=== PATIENT | female | born 1940 | race Two or more races ===

== ENCOUNTER → 2016-08-30 | Outpatient (CLI) | payer OTHER ==
[2016-08-30 09:18] LABS: Basophils # (auto) 0 uL; Basophils % (auto) 0.4 % (0.0-2.0); CONDITION AutoValidated; Eosinophils # (auto) 0.1 uL; Eosinophils % (auto) 1.4 % (0.0-7.0); Hematocrit 38.1 % (36.0-46.0); Lymphocytes # (auto) 1.9 uL; Lymphocytes % (auto) 40.3 % (10.0-50.0); Mean Corpuscular Hemoglobin 31.6 pg (28.0-32.0); Mean Corpuscular Hgb Conc. 34.2 g/dL (32.0-36.0); Mean Corpuscular Volume 92.6 fL (80.0-100.0); Mean Platelet Volume 8.2 fL (7.4-10.4); Monocytes # (auto) 0.4 uL; Monocytes % (auto) 7.4 % (0.0-12.0); Neutrophils # (auto) 2.4 uL; Neutrophils % (auto) 50.5 % (37.0-80.0); Platelet Count (auto) 282 10^3/uL (140-450); Red Cell Distribution Width 14.6 % (11.6-16.0); White Blood Cell 4.8 10^3/uL (4.4-10.8)
[2016-08-30 09:42] LABS: Albumin 3.3 g/dL (3.4-5.0); BUN/Creatinine Ratio 26.3; Bilirubin, Total 0.5 mg/dL (0.2-1.0); Calcium 8.7 mg/dL (8.5-10.1); Potassium 3.8 mmol/L (3.5-5.1)
[2016-08-30 10:06] LABS: Urine Bilirubin Negative (Negative); Urine Blood Negative /uL (Negative); Urine Color Yellow (Yellow); Urine Glucose Normal (Normal); Urine Ketone Negative (Negative); Urine Nitrite Negative (Negative); Urine RBC 4 /hpf (0 - 4); Urine Squamous Epithelial Cell FEW /hpf (<5); Urine Urobilinogen Normal (Negative)
== END | disposition home or self-care (01) ==
LOC: LAB 08:41
PROVIDERS: ATTEND Internal Medicine
DX: M85.80 Other specified disorders of bone density and structure, unspecified site (principal)
CPT/HCPCS: 36415; 80053; 80061; 81001; 82306; 82607; 84439; 84443; 85025; 85652; 86787

== ENCOUNTER → 2016-10-15 | Outpatient (CLI) | payer OTHER | END | disposition home or self-care (01) | LOC: LAB 10:00 | PROVIDERS: ATTEND Physician Assistant | DX: D22.4 Melanocytic nevi of scalp and neck (principal); C44.712 Basal cell carcinoma of skin of right lower limb, including hip ==

== ENCOUNTER → 2017-02-18 | Outpatient (CLI) | payer OTHER | END | disposition home or self-care (01) | LOC: LAB 12:16 | PROVIDERS: ATTEND Physician Assistant | DX: D18.01 Hemangioma of skin and subcutaneous tissue (principal); L82.1 Other seborrheic keratosis ==

== ENCOUNTER → 2018-09-08 | Outpatient (CLI) | payer OTHER ==
[2018-09-08 11:28] LABS: Urine Bacteria FEW /hpf (None Seen); Urine Blood Negative /uL (Negative); Urine Hyaline Cast FEW /lpf (0 - 2); Urine Specific Gravity 1.024 (1.001-1.035); Urine WBC 3 /hpf (0 - 5)
[2018-09-08 11:53] LABS: Basophils # (auto) 0 uL; Basophils % (auto) 0.4 % (0.0-2.0); Eosinophils # (auto) 0.1 uL; Eosinophils % (auto) 1.6 % (0.0-7.0); Hematocrit 41.3 % (36.0-46.0); Hemoglobin 13.8 g/dL (12.2-16.2); Lymphocytes # (auto) 1.6 uL; Lymphocytes % (auto) 32.3 % (10.0-50.0); Mean Corpuscular Hemoglobin 31.9 pg (28.0-32.0); Mean Corpuscular Hgb Conc. 33.4 g/dL (32.0-36.0); Mean Corpuscular Volume 95.3 fL (80.0-100.0); Monocytes # (auto) 0.3 uL; Monocytes % (auto) 6.4 % (0.0-12.0); Neutrophils % (auto) 59.3 % (37.0-80.0); Platelet Count (auto) 261 10^3/uL (140-450); Red Blood Cells 4.33 10^6/uL (4.0-5.20); Red Cell Distribution Width 14.5 % (11.8-14.3)
[2018-09-08 13:05] LABS: Potassium 4.3 mmol/L (3.5-5.1)
[2018-09-08 13:16] LABS: Albumin 3.6 g/dL (3.4-5.0); BUN/Creatinine Ratio 26.1; Bilirubin, Total 0.4 mg/dL (0.2-1.0); Calcium 9.6 mg/dL (8.5-10.1); Total Protein 7.6 g/dL (6.4-8.2)
== END | disposition home or self-care (01) ==
LOC: LAB 10:41
PROVIDERS: ATTEND Internal Medicine
DX: Z00.00 Encounter for general adult medical examination without abnormal findings (principal); M85.80 Other specified disorders of bone density and structure, unspecified site
CPT/HCPCS: 36415; 80053; 80061; 81001; 82306; 84439; 84443; 85025; 85652

== ENCOUNTER → 2018-11-13 | Outpatient (CLI) | payer OTHER ==
[2018-11-13 09:59] LABS: Basophils # (auto) 0 uL; Basophils % (auto) 0.3 % (0.0-2.0); Eosinophils # (auto) 0.1 uL; Eosinophils % (auto) 1.5 % (0.0-7.0); Hematocrit 40.7 % (36.0-46.0); Hemoglobin 13.8 g/dL (12.2-16.2); Lymphocytes # (auto) 1.5 uL; Lymphocytes % (auto) 33.8 % (10.0-50.0); Mean Corpuscular Hemoglobin 31.6 pg (28.0-32.0); Mean Corpuscular Hgb Conc. 33.8 g/dL (32.0-36.0); Mean Corpuscular Volume 93.5 fL (80.0-100.0); Monocytes # (auto) 0.4 uL; Neutrophils # (auto) 2.6 uL; Neutrophils % (auto) 56.4 % (37.0-80.0); Platelet Count (auto) 244 10^3/uL (140-450); Red Blood Cells 4.36 10^6/uL (4.0-5.20); Red Cell Distribution Width 14.1 % (11.8-14.3); White Blood Cell 4.5 10^3/uL (4.4-10.8)
[2018-11-13 10:14] LABS: Albumin 3.4 g/dL (3.4-5.0); Calcium 8.8 mg/dL (8.5-10.1); Potassium 3.9 mmol/L (3.5-5.1)
[2018-11-13 10:18] LABS: BUN/Creatinine Ratio 23.9; Bilirubin, Total 0.6 mg/dL (0.2-1.0); Total Protein 7.4 g/dL (6.4-8.2)
== END | disposition home or self-care (01) ==
LOC: LAB 09:39
PROVIDERS: ATTEND Internal Medicine
DX: J18.1 Lobar pneumonia, unspecified organism (principal)
CPT/HCPCS: 36415; 80053; 85025; 85652

== ENCOUNTER → 2019-09-03 | Outpatient (CLI) | payer OTHER ==
[2019-09-03 10:38] LABS: Urine Bacteria NONE SEEN /hpf (None Seen); Urine Blood TRACE /uL (Negative); Urine Mucus FEW (None Seen); Urine Specific Gravity 1.029 (1.001-1.035); Urine WBC 7 /hpf (0 - 5)
[2019-09-03 11:08] LABS: Basophils # (auto) 0 10 ^3/uL (0-0.2); Basophils % (auto) 0.5 % (0.0-2.0); Eosinophils # (auto) 0.1 10 ^3/uL (0-0.8); Hematocrit 41.8 % (36.0-46.0); Hemoglobin 13.9 g/dL (12.2-16.2); Lymphocytes # (auto) 1.5 10 ^3/uL (0.4-5.4); Lymphocytes % (auto) 29.1 % (10.0-50.0); Mean Corpuscular Hemoglobin 30.9 pg (28.0-32.0); Mean Corpuscular Hgb Conc. 33.2 g/dL (32.0-36.0); Monocytes # (auto) 0.3 10 ^3/uL (0-1.3); Monocytes % (auto) 5.7 % (0.0-12.0); Neutrophils # (auto) 3.4 10 ^3/uL (1.6-8.6); Neutrophils % (auto) 63.7 % (37.0-80.0); Platelet Count (auto) 270 10^3/uL (140-450); Red Cell Distribution Width 14.4 % (11.8-14.3); White Blood Cell 5.3 10^3/uL (4.4-10.8)
[2019-09-03 11:47] LABS: Free T4 (Free Thyroxine) 1.05 ng/dL (0.89-1.76)
[2019-09-03 12:04] LABS: Albumin 3.4 g/dL (3.4-5.0); Calcium 8.5 mg/dL (8.5-10.1); Potassium 4.2 mmol/L (3.5-5.1)
[2019-09-03 12:06] LABS: BUN/Creatinine Ratio 33.3
[2019-09-03 12:08] LABS: Bilirubin, Total 0.4 mg/dL (0.2-1.0); Total Protein 7.5 g/dL (6.4-8.2)
[2019-09-16 12:31] LABS: RPR Non Reactive (Non Reactive)
== END | disposition home or self-care (01) ==
LOC: LAB 10:01
PROVIDERS: ATTEND Internal Medicine
DX: I67.2 Cerebral atherosclerosis (principal); R41.89 Other symptoms and signs involving cognitive functions and awareness
CPT/HCPCS: 36415; 80053; 80061; 81001; 82607; 84439; 84443; 85025; 85652; 86592

== ENCOUNTER → 2019-11-23 | Outpatient (CLI) | payer OTHER ==
[2019-11-23 10:33] LABS: Basophils # (auto) 0 10 ^3/uL (0-0.2); Basophils % (auto) 0.6 % (0.0-2.0); Eosinophils # (auto) 0.1 10 ^3/uL (0-0.8); Eosinophils % (auto) 1.3 % (0.0-7.0); Hematocrit 40.2 % (36.0-46.0); Hemoglobin 13.6 g/dL (12.2-16.2); Lymphocytes # (auto) 1.8 10 ^3/uL (0.4-5.4); Lymphocytes % (auto) 32.8 % (10.0-50.0); Mean Corpuscular Hemoglobin 31.9 pg (28.0-32.0); Mean Corpuscular Hgb Conc. 33.7 g/dL (32.0-36.0); Mean Corpuscular Volume 94.5 fL (80.0-100.0); Monocytes # (auto) 0.4 10 ^3/uL (0-1.3); Neutrophils # (auto) 3.2 10 ^3/uL (1.6-8.6); Neutrophils % (auto) 58.3 % (37.0-80.0); Platelet Count (auto) 271 10^3/uL (140-450); Red Blood Cells 4.25 10^6/uL (4.0-5.20); Red Cell Distribution Width 13.8 % (11.8-14.3); White Blood Cell 5.5 10^3/uL (4.4-10.8)
[2019-11-23 10:40] LABS: Urine Bacteria NONE SEEN /hpf (None Seen); Urine Blood Negative /uL (Negative); Urine Mucus FEW (None Seen); Urine Specific Gravity 1.025 (1.001-1.035); Urine WBC 2 /hpf (0 - 5)
[2019-11-23 10:51] LABS: Albumin 3.6 g/dL (3.4-5.0); Calcium 8.9 mg/dL (8.5-10.1); Potassium 3.8 mmol/L (3.5-5.1)
[2019-11-23 10:55] LABS: Bilirubin, Total 0.7 mg/dL (0.2-1.0); Total Protein 7.5 g/dL (6.4-8.2)
== END | disposition home or self-care (01) ==
LOC: LAB 10:06
PROVIDERS: ATTEND Internal Medicine
DX: Z01.812 Encounter for preprocedural laboratory examination (principal); E78.00 Pure hypercholesterolemia, unspecified
CPT/HCPCS: 36415; 80053; 81001; 85025

== ENCOUNTER → 2019-12-23 | Outpatient (CLI) | payer OTHER | END | disposition home or self-care (01) | LOC: LAB 10:34 | PROVIDERS: ATTEND Internal Medicine | DX: Z20.828 Contact with and (suspected) exposure to other viral communicable diseases (principal) | CPT/HCPCS: C9803; U0003 ==

== ENCOUNTER → 2020-01-28 | Outpatient (CLI) | payer OTHER ==
[2020-01-28 10:10] LABS: Basophils # (auto) 0 10 ^3/uL (0-0.2); Basophils % (auto) 0.5 % (0.0-2.0); Eosinophils # (auto) 0.1 10 ^3/uL (0-0.8); Eosinophils % (auto) 1.5 % (0.0-7.0); Hematocrit 42.2 % (36.0-46.0); Hemoglobin 14.3 g/dL (12.2-16.2); Lymphocytes # (auto) 1.7 10 ^3/uL (0.4-5.4); Mean Corpuscular Hemoglobin 31.7 pg (28.0-32.0); Mean Corpuscular Hgb Conc. 33.9 g/dL (32.0-36.0); Mean Corpuscular Volume 93.7 fL (80.0-100.0); Monocytes # (auto) 0.4 10 ^3/uL (0-1.3); Monocytes % (auto) 6.8 % (0.0-12.0); Neutrophils # (auto) 3.2 10 ^3/uL (1.6-8.6); Neutrophils % (auto) 59.2 % (37.0-80.0); Platelet Count (auto) 306 10^3/uL (140-450); Red Blood Cells 4.51 10^6/uL (4.0-5.20); Red Cell Distribution Width 14.2 % (11.8-14.3); Urine Blood Negative /uL (Negative); Urine Specific Gravity 1.011 (1.001-1.035); White Blood Cell 5.4 10^3/uL (4.4-10.8)
[2020-01-28 10:23] LABS: INR 1.06 (0.9-1.15); Partial Thromboplastin Time 25.3 sec (23.0-31.2)
[2020-01-28 10:48] LABS: Albumin 3.5 g/dL (3.4-5.0); Calcium 9.4 mg/dL (8.5-10.1); Potassium 4.4 mmol/L (3.5-5.1)
[2020-01-28 10:53] LABS: Bilirubin, Total 0.4 mg/dL (0.2-1.0); Total Protein 7.7 g/dL (6.4-8.2)
== END | disposition home or self-care (01) ==
LOC: LAB 09:46
PROVIDERS: ATTEND Specialist
DX: Z01.812 Encounter for preprocedural laboratory examination (principal); H25.12 Age-related nuclear cataract, left eye; D68.9 Coagulation defect, unspecified; Z79.01 Long term (current) use of anticoagulants
CPT/HCPCS: 36415; 80053; 81003; 85025; 85610; 85730

== ENCOUNTER → 2020-04-24 | Outpatient (CLI) | payer BC ==
[2020-04-24 10:38] LABS: Band Neutrophils % (manual) 0; Basophils % (manual) 0 (0.0-2.0); Blast Cells 0; Metamyelocytes % 0; Myelocytes % 0; Promyelocytes % 0; Reactive Lymphocytes 0
[2020-04-24 10:54] LABS: Basophils # (auto) 0 10 ^3/uL (0-0.2); Basophils % (auto) 0.8 % (0.0-2.0); Eosinophils # (auto) 0.1 10 ^3/uL (0-0.8); Eosinophils % (auto) 2.7 % (0.0-7.0); Hematocrit 40.6 % (36.0-46.0); Hemoglobin 13.7 g/dL (12.2-16.2); Lymphocytes # (auto) 1.5 10 ^3/uL (0.4-5.4); Lymphocytes % (auto) 29.1 % (10.0-50.0); Mean Corpuscular Hemoglobin 31.3 pg (28.0-32.0); Mean Corpuscular Hgb Conc. 33.7 g/dL (32.0-36.0); Monocytes # (auto) 0.4 10 ^3/uL (0-1.3); Monocytes % (auto) 7.3 % (0.0-12.0); Neutrophils % (auto) 60.1 % (37.0-80.0); Platelet Count (auto) 296 10^3/uL (140-450); Red Blood Cells 4.37 10^6/uL (4.0-5.20); Red Cell Distribution Width 13.8 % (11.8-14.3)
[2020-04-24 11:31] LABS: Cholesterol 217 mg/dL (< 200); HDL Cholesterol 65 mg/dL (40-59); LDL Cholesterol 129 mg/dL (< 100); Triglycerides 80 mg/dL (< 150)
[2020-04-24 11:35] LABS: Eosinophils % (manual) 3 (0-7); Lymphocytes % (manual) 34 (10.0-50.0); Monocytes % (manual) 6 (0-12)
== END | disposition home or self-care (01) ==
LOC: LAB 10:07
PROVIDERS: ATTEND Internal Medicine
DX: E78.00 Pure hypercholesterolemia, unspecified (principal); R05 Cough
CPT/HCPCS: 36415; 80061; 82785; 85025

== ENCOUNTER → 2020-12-19 | Outpatient (CLI) | payer BC ==
[2020-12-19 10:32] LABS: Basophils # (auto) 0 10 ^3/uL (0-0.2); Basophils % (auto) 0.7 % (0.0-2.0); Eosinophils # (auto) 0.1 10 ^3/uL (0-0.8); Eosinophils % (auto) 1.4 % (0.0-7.0); Hematocrit 39.2 % (36.0-46.0); Hemoglobin 13.2 g/dL (12.2-16.2); Lymphocytes # (auto) 1.6 10 ^3/uL (0.4-5.4); Lymphocytes % (auto) 33.7 % (10.0-50.0); Mean Corpuscular Hemoglobin 31.1 pg (28.0-32.0); Mean Corpuscular Hgb Conc. 33.7 g/dL (32.0-36.0); Mean Corpuscular Volume 92.5 fL (80.0-100.0); Monocytes # (auto) 0.3 10 ^3/uL (0-1.3); Monocytes % (auto) 6.6 % (0.0-12.0); Neutrophils # (auto) 2.8 10 ^3/uL (1.6-8.6); Neutrophils % (auto) 57.6 % (37.0-80.0); Red Blood Cells 4.23 10^6/uL (4.0-5.20); Red Cell Distribution Width 14.5 % (11.8-14.3); White Blood Cell 4.8 10^3/uL (4.4-10.8)
[2020-12-19 10:46] LABS: Urine Bacteria NONE SEEN /hpf (None Seen); Urine Blood Negative /uL (Negative); Urine Specific Gravity 1.021 (1.001-1.035); Urine WBC 21 /hpf (0 - 5)
[2020-12-19 10:56] LABS: Albumin 3.4 g/dL (3.4-5.0); Calcium 9.4 mg/dL (8.5-10.1); Potassium 3.9 mmol/L (3.5-5.1)
[2020-12-19 11:03] LABS: BUN/Creatinine Ratio 27.8; Bilirubin, Total 0.5 mg/dL (0.2-1.0); Total Protein 7.5 g/dL (6.4-8.2); Uric Acid 3.9 mg/dL (2.6-6.0)
== END | disposition home or self-care (01) ==
LOC: LAB 10:08
PROVIDERS: ATTEND Internal Medicine
DX: M85.80 Other specified disorders of bone density and structure, unspecified site (principal); M25.50 Pain in unspecified joint
CPT/HCPCS: 36415; 80053; 80061; 81001; 82306; 83970; 84439; 84443; 84550; 85025; 85652; 86200; 86431

== ENCOUNTER 2021-01-11 08:50 | Inpatient (IN) | payer BC, OTHER ==
[~2021-01-11] VITALS: Ht 157.5 cm; Wt 61.2 kg
[2021-01-11 09:27] LABS: Basophils # (auto) 0 10 ^3/uL (0-0.2); Eosinophils # (auto) 0 10 ^3/uL (0-0.8); Hemoglobin 13.5 g/dL (12.2-16.2); Monocytes # (auto) 0 10 ^3/uL (0-1.3)
[2021-01-11 09:28] LABS: Eosinophils % (auto) 1.6 % (0.0-7.0); Hematocrit 41.3 % (36.0-46.0); Lymphocytes # (auto) 0.3 10 ^3/uL (0.4-5.4); Lymphocytes % (auto) 30.7 % (10.0-50.0); Mean Corpuscular Hemoglobin 30.8 pg (28.0-32.0); Mean Corpuscular Hgb Conc. 32.8 g/dL (32.0-36.0); Mean Corpuscular Volume 93.8 fL (80.0-100.0); Monocytes % (auto) 3.6 % (0.0-12.0); Neutrophils # (auto) 0.6 10 ^3/uL (1.6-8.6); Neutrophils % (auto) 64.1 % (37.0-80.0); Nucleated Red Blood Cells % 0.5 %; Red Cell Distribution Width 14.7 % (11.8-14.3)
[2021-01-11] MEDS ORDERED: KETOROLAC TROMETH 30 MG/ML 1ML VIAL IV ONE (09:30)
[2021-01-11] MEDS ORDERED: ONDANSETRON HCL 4 MG/2 ML VIAL IV ONE ×2 (09:30→10:45)
[2021-01-11 09:42] LABS: Albumin 3.4 g/dL (3.4-5.0); Calcium 9.4 mg/dL (8.5-10.1); Magnesium 1.9 mg/dL (1.6-2.6); Potassium 3.2 mmol/L (3.5-5.1)
[2021-01-11 09:45] LABS: BUN/Creatinine Ratio 20.4; Bilirubin, Total 0.8 mg/dL (0.2-1.0); Total Protein 7.8 g/dL (6.4-8.2)
[2021-01-11] MEDS ORDERED: SODIUM CHLORIDE 0.9% 1,000 ML IV ONE ×2 (10:00→14:30)
[2021-01-11 10:15] LABS: White Blood Cell 0.9 10^3/uL (4.4-10.8)
[2021-01-11] MEDS ORDERED: MORPHINE SULFATE INJECTION 2 MG/ML SYRG IV ONE (10:45)
[2021-01-11 12:34] LABS: Urine Bacteria FEW /hpf (None Seen); Urine Blood 1+ /uL (Negative); Urine WBC 3 /hpf (0 - 5)
[2021-01-11] MEDS ORDERED: TAMSULOSIN HYDROCHLORIDE 0.4 MG CAP PO ONE (13:15)
[2021-01-11] MEDS ORDERED: cefTRIAXone 1GM/50ML D5W 50 ML IV ONE (13:15)
[2021-01-11] MEDS ORDERED: MORPHINE SULFATE INJECTION 2 MG/ML SYRG IV PRN ×2 (14:30→15:15)
[2021-01-11] MEDS ORDERED: SODIUM CHLORIDE 0.9% 1,850 ML IV ONE (14:30)
[2021-01-11] MEDS ORDERED: NITROGLYCERIN 0.4 MG SL TAB SL PRN (14:30)
[2021-01-11] MEDS ORDERED: FILGRASTIM (TBO) 300 MCG/0.5 ML SYRG SC ONE (15:15)
[2021-01-11] MEDS ORDERED: DEXTROSE (50%) 50ML SYRG IV PRN (15:15)
[2021-01-11] MEDS ORDERED: POTASSIUM EFFERVESENT TAB 25 MEQ PO ONE (15:15)
[2021-01-11 15:17] LABS: Lactic Acid w/Reflex 2.1 mmol/L (0.4-2.0)
[2021-01-11] MEDS: SODIUM CHLORIDE 0.9% 1,000 ML IV SCH (15:27)
[2021-01-11] MEDS ORDERED: ASPirin 81 mg TAB PO ONE (16:00)
[2021-01-11] MEDS: ACCU-CHEK COMFORT CURVE STRIP VI SCH ×2 (17:22→22:13)
[2021-01-11 18:11] LABS: Cholesterol 171 mg/dL (< 200); Triglycerides 62 mg/dL (< 150)
[2021-01-11 18:13] LABS: HDL Cholesterol 61 mg/dL (40-59); LDL Cholesterol 101 mg/dL (< 100)
[2021-01-11] MEDS: PHENYLEPHRINE IV 250 ML IV SCH (19:31)
[2021-01-11] MEDS: ATORVASTATIN 20 MG TAB PO SCH (22:12)
[2021-01-11] MEDS: ENOXAPARIN SOD 60 MG/0.6 ML SYRINGE SC SCH (22:13)
[2021-01-11] MEDS ORDERED: SOD CHL 0.9%/ KCL 40MEQ 1,000 ML IV SCH (22:30)
[2021-01-11] MEDS: NOREPINEPHRINE 8 MG/250ML KIT 250 ML IV SCH (23:21)
[2021-01-12] MEDS: PHENYLEPHRINE IV 250 ML IV SCH ×3 (00:45→05:08)
[2021-01-12] MEDS: SODIUM CHLORIDE 0.9% 1,000 ML IV SCH ×3 (01:36→21:24)
[2021-01-12] MEDS: ACETAMINOPHEN 500 MG TAB PO PRN (01:37)
[2021-01-12] MEDS ORDERED: VANCOMYCIN PER PHARMACY 0 MG IV SCH (01:45)
[2021-01-12] MEDS ORDERED: VANCOMYCIN 1GM/250ML 250 ML IV ONE (02:00)
[2021-01-12] MEDS: traMADol HCL 50 MG TAB PO PRN ×2 (06:56→18:05)
[2021-01-12] MEDS: ACCU-CHEK COMFORT CURVE STRIP VI SCH ×4 (07:19→21:29)
[2021-01-12 07:22] LABS: Hematocrit 36.4 % (36.0-46.0); Hemoglobin 12.3 g/dL (12.2-16.2); Mean Corpuscular Hemoglobin 31.7 pg (28.0-32.0); Mean Corpuscular Hgb Conc. 33.7 g/dL (32.0-36.0); Mean Corpuscular Volume 94.2 fL (80.0-100.0); Red Blood Cells 3.87 10^6/uL (4.0-5.20); Red Cell Distribution Width 15.1 % (11.8-14.3); White Blood Cell 20.7 10^3/uL (4.4-10.8)
[2021-01-12 07:24] LABS: Basophils % (manual) 0 (0.0-2.0); Blast Cells 0; Eosinophils % (manual) 0 (0-7); Metamyelocytes % 0; Myelocytes % 0; Promyelocytes % 0; Reactive Lymphocytes 0
[2021-01-12 07:39] LABS: Albumin 2.5 g/dL (3.4-5.0); Calcium 7.5 mg/dL (8.5-10.1)
[2021-01-12 07:46] LABS: BUN/Creatinine Ratio 16.5; Bilirubin, Total 0.3 mg/dL (0.2-1.0); Total Protein 6.3 g/dL (6.4-8.2)
[2021-01-12 08:23] LABS: Band Neutrophils % (manual) 31; Lymphocytes % (manual) 9 (10.0-50.0); Monocytes % (manual) 3 (0-12)
[2021-01-12] MEDS ORDERED: ENOXAPARIN SOD 40 MG/0.4 ML SYRINGE SC SCH (10:00)
[2021-01-12] MEDS ORDERED: FILGRASTIM (TBO) 300 MCG/0.5 ML SYRG SC SCH (10:00)
[2021-01-12] MEDS: ASPirin 81 mg TAB PO SCH (10:19)
[2021-01-12] MEDS: cefTRIAXone 1GM/50ML D5W 50 ML IV SCH (10:19)
[2021-01-12] MEDS: ENOXAPARIN SOD 60 MG/0.6 ML SYRINGE SC SCH ×2 (10:23→21:24)
[2021-01-12] MEDS: MEROPENEM 1GM IVPB 100 ML IV SCH (14:06)
[2021-01-12] MEDS: ONDANSETRON HCL 4 MG/2 ML VIAL IV PRN (14:18)
[2021-01-12] MEDS: ATORVASTATIN 20 MG TAB PO SCH (21:24)
[2021-01-12] MEDS: NOREPINEPHRINE 8 MG/250ML KIT 250 ML IV SCH (23:15)
[2021-01-12 23:55] VITALS: BP 131/76
[2021-01-13] MEDS: ONDANSETRON HCL 4 MG/2 ML VIAL IV PRN ×2 (00:16→04:56)
[2021-01-13] MEDS: MEROPENEM 1GM IVPB 100 ML IV SCH ×2 (02:10→14:13)
[2021-01-13] MEDS: PHENYLEPHRINE IV 250 ML IV SCH (04:20)
[2021-01-13 05:00] VITALS: BP 120/78
[2021-01-13] MEDS ORDERED: VANCOMYCIN 1GM/250ML 250 ML IV SCH (05:00)
[2021-01-13] MEDS: ACCU-CHEK COMFORT CURVE STRIP VI SCH (06:03)
[2021-01-13 06:59] LABS: Hematocrit 33.6 % (36.0-46.0); Hemoglobin 11.5 g/dL (12.2-16.2); Mean Corpuscular Hgb Conc. 34.2 g/dL (32.0-36.0); Mean Corpuscular Volume 93.6 fL (80.0-100.0); Red Blood Cells 3.59 10^6/uL (4.0-5.20); Red Cell Distribution Width 15.1 % (11.8-14.3); White Blood Cell 19.5 10^3/uL (4.4-10.8)
[2021-01-13 07:12] LABS: Basophils % (manual) 0 (0.0-2.0); Blast Cells 0; Eosinophils % (manual) 0 (0-7); Myelocytes % 0; Promyelocytes % 0; Reactive Lymphocytes 0
[2021-01-13 07:17] LABS: Potassium 3.5 mmol/L (3.5-5.1)
[2021-01-13 07:30] LABS: Albumin 2.2 g/dL (3.4-5.0); BUN/Creatinine Ratio 22.6; Bilirubin, Total 0.4 mg/dL (0.2-1.0); Calcium 7.7 mg/dL (8.5-10.1); Magnesium 2.1 mg/dL (1.6-2.6); Total Protein 6.1 g/dL (6.4-8.2)
[2021-01-13] MEDS: cefTRIAXone 1GM/50ML D5W 50 ML IV SCH (09:05)
[2021-01-13] MEDS: ASPirin 81 mg TAB PO SCH (09:06)
[2021-01-13] MEDS: ENOXAPARIN SOD 60 MG/0.6 ML SYRINGE SC SCH (09:06)
[2021-01-13] MEDS: ACETAMINOPHEN 500 MG TAB PO PRN (09:07)
[2021-01-13 09:08] VITALS: BP 138/68
[2021-01-13 09:45] LABS: Band Neutrophils % (manual) 14; Lymphocytes % (manual) 5 (10.0-50.0); Metamyelocytes % 2; Monocytes % (manual) 2 (0-12)
[2021-01-13 12:30] VITALS: BP 122/69
[2021-01-13] MEDS ORDERED: ONDANSETRON HCL 4 MG/2 ML VIAL IV PRN (13:00)
[2021-01-13] MEDS: SODIUM CHLORIDE 0.9% 1,000 ML IV SCH (13:19)
[2021-01-13] MEDS ORDERED: METOPROLOL TARTRATE 25 MG TAB PO ONE (18:30)
[2021-01-13] MEDS ORDERED: ALPRAZolam 0.25 MG TAB PO ONE (18:30)
[2021-01-13] MEDS: traMADol HCL 50 MG TAB PO PRN (20:41)
[2021-01-13] MEDS: ATORVASTATIN 20 MG TAB PO SCH (21:22)
[2021-01-13 22:00] VITALS: BP 131/73
[2021-01-13] MEDS ORDERED: ENOXAPARIN SOD 60 MG/0.6 ML SYRINGE SC SCH (22:00)
[2021-01-13 22:22] LABS: Hematocrit 33.5 % (36.0-46.0); Hemoglobin 11.2 g/dL (12.2-16.2); Mean Corpuscular Hemoglobin 31.1 pg (28.0-32.0); Mean Corpuscular Hgb Conc. 33.5 g/dL (32.0-36.0); Mean Corpuscular Volume 92.8 fL (80.0-100.0); Red Blood Cells 3.61 10^6/uL (4.0-5.20); Red Cell Distribution Width 14.7 % (11.8-14.3); White Blood Cell 24.4 10^3/uL (4.4-10.8)
[2021-01-13 22:25] LABS: Basophils % (manual) 0 (0.0-2.0); Blast Cells 0; Eosinophils % (manual) 0 (0-7); Metamyelocytes % 0; Myelocytes % 0; Promyelocytes % 0; Reactive Lymphocytes 0
[2021-01-13 22:36] LABS: Albumin 2.1 g/dL (3.4-5.0); BUN/Creatinine Ratio 30.8; Potassium 3.4 mmol/L (3.5-5.1)
[2021-01-13 22:39] LABS: Bilirubin, Total 0.5 mg/dL (0.2-1.0); Total Protein 5.8 g/dL (6.4-8.2)
[2021-01-13] MEDS ORDERED: POTASSIUM CHL 20MEQ/100ML 100 ML IV ONE (23:15)
[2021-01-13] MEDS ORDERED: VANCOMYCIN PER PHARMACY 0 MG IV SCH (23:15)
[2021-01-13] MEDS ORDERED: VANCOMYCIN 1GM/250ML 250 ML IV ONE (23:30)
[2021-01-13 23:32] LABS: Band Neutrophils % (manual) 9; Lymphocytes % (manual) 4 (10.0-50.0); Monocytes % (manual) 4 (0-12)
[2021-01-14] MEDS: MEROPENEM 1GM IVPB 100 ML IV SCH ×2 (03:26→14:00)
[2021-01-14 04:55] VITALS: BP 127/75
[2021-01-14] MEDS: SODIUM CHLORIDE 0.9% 1,000 ML IV SCH ×2 (06:17→23:37)
[2021-01-14] MEDS: METOPROLOL TARTRATE 25 MG TAB PO SCH ×2 (08:00→21:25)
[2021-01-14 08:36] LABS: Hematocrit 34.8 % (36.0-46.0); Hemoglobin 11.6 g/dL (12.2-16.2); Mean Corpuscular Hemoglobin 31.1 pg (28.0-32.0); Mean Corpuscular Hgb Conc. 33.3 g/dL (32.0-36.0); Mean Corpuscular Volume 93.5 fL (80.0-100.0); Red Blood Cells 3.72 10^6/uL (4.0-5.20); Red Cell Distribution Width 15.1 % (11.8-14.3); White Blood Cell 20.3 10^3/uL (4.4-10.8)
[2021-01-14 08:44] LABS: INR 1.13 (0.9-1.15)
[2021-01-14 08:45] LABS: BUN/Creatinine Ratio 29.3; Calcium 7.9 mg/dL (8.5-10.1); Potassium 3.9 mmol/L (3.5-5.1)
[2021-01-14 08:47] LABS: Bilirubin, Total 0.5 mg/dL (0.2-1.0)
[2021-01-14 09:00] VITALS: BP 140/78
[2021-01-14] MEDS ORDERED: TAMSULOSIN HYDROCHLORIDE 0.4 MG CAP PO ONE (09:15)
[2021-01-14] MEDS: ASPirin 81 mg TAB PO SCH (09:38)
[2021-01-14] MEDS: ENOXAPARIN SOD 60 MG/0.6 ML SYRINGE SC SCH ×2 (10:00→21:25)
[2021-01-14] MEDS ORDERED: ENOXAPARIN SOD 40 MG/0.4 ML SYRINGE SC SCH (10:00)
[2021-01-14 13:00] VITALS: BP 135/72
[2021-01-14 14:10] LABS: Basophils % (manual) 0 (0.0-2.0); Blast Cells 0; Metamyelocytes % 0; Myelocytes % 0; Promyelocytes % 0; Reactive Lymphocytes 0
[2021-01-14 14:11] LABS: Eosinophils % (manual) 1 (0-7); Lymphocytes % (manual) 7 (10.0-50.0); Monocytes % (manual) 2 (0-12)
[2021-01-14 14:12] LABS: Band Neutrophils % (manual) 8
[2021-01-14 17:23] VITALS: BP 142/71
[2021-01-14] MEDS: TAMSULOSIN HYDROCHLORIDE 0.4 MG CAP PO SCH (17:47)
[2021-01-14] MEDS: ACETAMINOPHEN 500 MG TAB PO PRN (17:48)
[2021-01-14] MEDS: ATORVASTATIN 20 MG TAB PO SCH (21:25)
[2021-01-14 22:20] VITALS: BP 121/73
[2021-01-15] VITALS (15 sets, daily range): BP systolic 101–128; BP diastolic 61–81
[2021-01-15] MEDS: MEROPENEM 1GM IVPB 100 ML IV SCH (02:10)
[2021-01-15] MEDS ORDERED: VANCOMYCIN 1GM/250ML 250 ML IV SCH (05:00)
[2021-01-15 05:55] LABS: Hematocrit 32.8 % (36.0-46.0); Mean Corpuscular Hgb Conc. 33.5 g/dL (32.0-36.0); Mean Corpuscular Volume 92.5 fL (80.0-100.0); Red Blood Cells 3.55 10^6/uL (4.0-5.20); Red Cell Distribution Width 14.7 % (11.8-14.3); White Blood Cell 12.2 10^3/uL (4.4-10.8)
[2021-01-15 06:18] LABS: Basophils % (manual) 0 (0.0-2.0); Blast Cells 0; Eosinophils % (manual) 0 (0-7); Metamyelocytes % 0; Myelocytes % 0; Promyelocytes % 0; Reactive Lymphocytes 0
[2021-01-15 06:18] LABS: BUN/Creatinine Ratio 32.6; Calcium 7.9 mg/dL (8.5-10.1); Potassium 3.1 mmol/L (3.5-5.1)
[2021-01-15] MEDS: METOPROLOL TARTRATE 25 MG TAB PO SCH ×2 (08:15→22:23)
[2021-01-15 08:38] LABS: Band Neutrophils % (manual) 5; Lymphocytes % (manual) 10 (10.0-50.0); Monocytes % (manual) 7 (0-12)
[2021-01-15] MEDS ORDERED: MAGNESIUM OXIDE 400 MG TAB PO ONE (09:00)
[2021-01-15] MEDS ORDERED: POTASSIUM EFFERVESENT TAB 25 MEQ PO ONE (09:00)
[2021-01-15] MEDS ORDERED: FUROSEMIDE 20 MG/2 ML VIAL IV ONE (09:00)
[2021-01-15] MEDS ORDERED: IOHEXOL 350 MG/ML 100ML IJ ONE (09:16)
[2021-01-15] MEDS: ENOXAPARIN SOD 60 MG/0.6 ML SYRINGE SC SCH ×2 (10:00→22:23)
[2021-01-15] MEDS: ASPirin 81 mg TAB PO SCH (11:49)
[2021-01-15] MEDS ORDERED: POTASSIUM CHL 20 Meq TABLET PO ONE (14:00)
[2021-01-15] MEDS: ERTAPENEM SOD INJ 1 GM in SODIUM CHL 0.9% 50 ML IV SCH (14:00)
[2021-01-15] MEDS ORDERED: ALBUTEROL SULF 2.5 MG/0.5ML(0.5%) NEB SOLN NEB PRN (15:15)
[2021-01-15] MEDS ORDERED: IPRATROPIUM BROM 0.5 MG/2.5ML INH SOL NEB PRN (15:15)
[2021-01-15] MEDS: TAMSULOSIN HYDROCHLORIDE 0.4 MG CAP PO SCH (17:58)
[2021-01-15] MEDS: ATORVASTATIN 20 MG TAB PO SCH (22:22)
[2021-01-16] VITALS (7 sets, daily range): BP systolic 116–130; BP diastolic 59–90
[2021-01-16 06:37] LABS: Calcium 7.9 mg/dL (8.5-10.1); Magnesium 1.9 mg/dL (1.6-2.6); Potassium 3.9 mmol/L (3.5-5.1)
[2021-01-16] MEDS: ASPirin 81 mg TAB PO SCH (09:01)
[2021-01-16] MEDS: METOPROLOL TARTRATE 25 MG TAB PO SCH ×2 (09:02→21:41)
[2021-01-16] MEDS: ENOXAPARIN SOD 60 MG/0.6 ML SYRINGE SC SCH (09:03)
[2021-01-16] MEDS: ACETAMINOPHEN 500 MG TAB PO PRN (09:08)
[2021-01-16] MEDS: ERTAPENEM SOD INJ 1 GM in SODIUM CHL 0.9% 50 ML IV SCH (10:16)
[2021-01-16] MEDS: TAMSULOSIN HYDROCHLORIDE 0.4 MG CAP PO SCH (17:52)
[2021-01-16] MEDS: ATORVASTATIN 20 MG TAB PO SCH (21:40)
[2021-01-17 04:41] VITALS: BP 112/70
[2021-01-17] MEDS: ACETAMINOPHEN 500 MG TAB PO PRN (06:22)
[2021-01-17 07:26] LABS: Potassium 3.6 mmol/L (3.5-5.1)
[2021-01-17 07:27] LABS: Hematocrit 35.1 % (36.0-46.0); Hemoglobin 12.4 g/dL (12.2-16.2); Mean Corpuscular Hemoglobin 32.1 pg (28.0-32.0); Mean Corpuscular Hgb Conc. 35.4 g/dL (32.0-36.0); Mean Corpuscular Volume 90.7 fL (80.0-100.0); Red Blood Cells 3.87 10^6/uL (4.0-5.20); Red Cell Distribution Width 14.9 % (11.8-14.3); White Blood Cell 9.1 10^3/uL (4.4-10.8)
[2021-01-17 07:33] LABS: Basophils % (manual) 0 (0.0-2.0); Blast Cells 0; Metamyelocytes % 0; Myelocytes % 0; Promyelocytes % 0; Reactive Lymphocytes 0
[2021-01-17] MEDS: METOPROLOL TARTRATE 25 MG TAB PO SCH (08:05)
[2021-01-17 09:00] VITALS: BP 126/67
[2021-01-17] MEDS: ASPirin 81 mg TAB PO SCH (09:50)
[2021-01-17] MEDS: ERTAPENEM SOD INJ 1 GM in SODIUM CHL 0.9% 50 ML IV SCH (09:51)
[2021-01-17] MEDS ORDERED: ENOXAPARIN SOD 40 MG/0.4 ML SYRINGE SC SCH (10:00)
[2021-01-17 11:44] LABS: Band Neutrophils % (manual) 1; Eosinophils % (manual) 3 (0-7); Lymphocytes % (manual) 30 (10.0-50.0); Monocytes % (manual) 11 (0-12)
[2021-01-17 13:12] VITALS: BP 119/57
[2021-01-17 14:13] VITALS: BP 119/57
== END 2021-01-17 16:02 | disposition home or self-care (01) | DRG 871 ==
LOC: ER 08:50 → TELE 14:28 → TELE-WESTW 01-12 23:46
PROVIDERS: ADMIT Internal Medicine; ATTEND Internal Medicine
PROC: 05HF33Z Insertion of Infusion Device into Left Cephalic Vein, Percutaneous Approach (ICD-10-PCS; 2021-01-12)
PROC: B54NZZA Ultrasonography of Left Upper Extremity Veins, Guidance (ICD-10-PCS; 2021-01-12)
PROC: 0W993ZZ Drainage of Right Pleural Cavity, Percutaneous Approach (ICD-10-PCS; principal; 2021-01-15)
DX: A41.50 Gram-negative sepsis, unspecified (principal); J96.00 Acute respiratory failure, unspecified whether with hypoxia or hypercapnia; I21.4 Non-ST elevation (NSTEMI) myocardial infarction; N13.6 Pyonephrosis; N17.9 Acute kidney failure, unspecified; I47.1 Supraventricular tachycardia; J90 Pleural effusion, not elsewhere classified; E87.6 Hypokalemia; R73.9 Hyperglycemia, unspecified; Z20.822 Contact with and (suspected) exposure to COVID-19; E55.9 Vitamin D deficiency, unspecified; I70.90 Unspecified atherosclerosis; I48.91 Unspecified atrial fibrillation; Z80.3 Family history of malignant neoplasm of breast; Z85.3 Personal history of malignant neoplasm of breast; Z87.442 Personal history of urinary calculi; Z87.891 Personal history of nicotine dependence; Z90.13 Acquired absence of bilateral breasts and nipples
CPT/HCPCS: 36415; 71045; 71250; 71275; 74176; 76604; 76700; 76775; 76942; 80048; 80053; 80061; 80202; 81001; 82306; 82550; 82962; 83036; 83605; 83735; 83880; 83986; 84443; 84484; 85007; 85025; 85027; 85610; 86850; 86900; 86901; 87040; 87070; 87077; 87086; 87088; 87186; 87205; 87426; 89051; 93005; 93306; 96361; 96365; 96375; G0378; J0696; J1335; J1447; J1885; J2185; J2405; J3480

== ENCOUNTER → 2021-04-24 | Outpatient (CLI) | payer BC ==
[2021-04-24 10:37] LABS: Basophils # (auto) 0 10 ^3/uL (0-0.2); Basophils % (auto) 0.6 % (0.0-2.0); Eosinophils # (auto) 0.1 10 ^3/uL (0-0.8); Eosinophils % (auto) 1.8 % (0.0-7.0); Hematocrit 40.2 % (36.0-46.0); Hemoglobin 13.7 g/dL (12.2-16.2); Lymphocytes # (auto) 1.5 10 ^3/uL (0.4-5.4); Lymphocytes % (auto) 32.9 % (10.0-50.0); Mean Corpuscular Hemoglobin 31.2 pg (28.0-32.0); Mean Corpuscular Hgb Conc. 34.1 g/dL (32.0-36.0); Mean Corpuscular Volume 91.5 fL (80.0-100.0); Monocytes # (auto) 0.4 10 ^3/uL (0-1.3); Monocytes % (auto) 9.7 % (0.0-12.0); Neutrophils # (auto) 2.5 10 ^3/uL (1.6-8.6); Red Blood Cells 4.39 10^6/uL (4.0-5.20); Red Cell Distribution Width 13.9 % (11.8-14.3); White Blood Cell 4.6 10^3/uL (4.4-10.8)
[2021-04-24 11:19] LABS: Free T4 (Free Thyroxine) 1.28 ng/dL (0.89-1.76)
[2021-04-24 12:14] LABS: Potassium 4.1 mmol/L (3.5-5.1)
[2021-04-24 12:23] LABS: Albumin 3.4 g/dL (3.4-5.0); BUN/Creatinine Ratio 26.3; Bilirubin, Total 0.5 mg/dL (0.2-1.0); Calcium 9.3 mg/dL (8.5-10.1); Total Protein 7.8 g/dL (6.4-8.2)
[2021-04-25 08:06] LABS: Immunoglobulin G, Serum 1527 mg/dL (586-1602)
== END | disposition home or self-care (01) ==
LOC: LAB 09:36
PROVIDERS: ATTEND Internal Medicine
DX: M79.2 Neuralgia and neuritis, unspecified (principal); N13.2 Hydronephrosis with renal and ureteral calculous obstruction
CPT/HCPCS: 36415; 80053; 82306; 82607; 82784; 83036; 84439; 84443; 85025; 86200; 86334; 86431

== ENCOUNTER → 2022-01-03 | Outpatient (CLI) | payer BC ==
[2022-01-03 13:47] LABS: Basophils # (auto) 0 10 ^3/uL (0-0.2); Basophils % (auto) 0.4 % (0.0-2.0); Eosinophils # (auto) 0.1 10 ^3/uL (0-0.8); Eosinophils % (auto) 1.4 % (0.0-7.0); Hematocrit 40.6 % (36.0-46.0); Hemoglobin 13.1 g/dL (12.2-16.2); Lymphocytes # (auto) 1.8 10 ^3/uL (0.4-5.4); Lymphocytes % (auto) 29.1 % (10.0-50.0); Mean Corpuscular Hemoglobin 30.6 pg (28.0-32.0); Mean Corpuscular Hgb Conc. 32.4 g/dL (32.0-36.0); Mean Corpuscular Volume 94.6 fL (80.0-100.0); Monocytes # (auto) 0.4 10 ^3/uL (0-1.3); Monocytes % (auto) 6.1 % (0.0-12.0); Neutrophils # (auto) 3.9 10 ^3/uL (1.6-8.6); Nucleated Red Blood Cells % 0.1 %; Red Cell Distribution Width 14.4 % (11.8-14.3); White Blood Cell 6.1 10^3/uL (4.4-10.8)
[2022-01-03 13:51] LABS: Urine Bacteria NONE SEEN /hpf (None Seen); Urine Blood 1+ /uL (Negative); Urine Specific Gravity 1.024 (1.001-1.035); Urine WBC 5 /hpf (0 - 5)
[2022-01-03 14:15] LABS: Albumin 3.2 g/dL (3.4-5.0); BUN/Creatinine Ratio 31.2; Calcium 9.2 mg/dL (8.5-10.1); Potassium 3.8 mmol/L (3.5-5.1)
[2022-01-03 14:19] LABS: Bilirubin, Total 0.6 mg/dL (0.2-1.0); Total Protein 7.5 g/dL (6.4-8.2)
== END | disposition home or self-care (01) ==
LOC: LAB 13:23
PROVIDERS: ATTEND Internal Medicine
DX: Z85.3 Personal history of malignant neoplasm of breast (principal)
CPT/HCPCS: 36415; 80053; 80061; 81001; 84439; 84443; 85025; 85652

== ENCOUNTER 2022-05-14 15:36 | Emergency (ER) | payer BC, OTHER ==
[~2022-05-14] VITALS: Ht 157.5 cm; Wt 63.4 kg
[2022-05-14 16:50] LABS: Urine Bacteria FEW /hpf (None Seen); Urine Blood 2+ /uL (Negative); Urine Specific Gravity 1.008 (1.001-1.035); Urine WBC 3 /hpf (0 - 5)
[2022-05-14 17:19] LABS: Basophils # (auto) 0 10 ^3/uL (0-0.2); Basophils % (auto) 0.4 % (0.0-2.0); Eosinophils # (auto) 0.1 10 ^3/uL (0-0.8); Eosinophils % (auto) 0.8 % (0.0-7.0); Hematocrit 40.1 % (36.0-46.0); Hemoglobin 13.8 g/dL (12.2-16.2); Lymphocytes # (auto) 1.4 10 ^3/uL (0.4-5.4); Lymphocytes % (auto) 22.7 % (10.0-50.0); Mean Corpuscular Hemoglobin 31.3 pg (28.0-32.0); Mean Corpuscular Hgb Conc. 34.3 g/dL (32.0-36.0); Mean Corpuscular Volume 91.4 fL (80.0-100.0); Monocytes # (auto) 0.5 10 ^3/uL (0-1.3); Monocytes % (auto) 7.7 % (0.0-12.0); Neutrophils # (auto) 4.3 10 ^3/uL (1.6-8.6); Neutrophils % (auto) 68.4 % (37.0-80.0); Nucleated Red Blood Cells % 0.1 %; Red Blood Cells 4.39 10^6/uL (4.0-5.20); Red Cell Distribution Width 14.2 % (11.8-14.3); White Blood Cell 6.3 10^3/uL (4.4-10.8)
[2022-05-14 17:45] LABS: Albumin 3.4 g/dL (3.4-5.0); BUN/Creatinine Ratio 18.6; Calcium 9.6 mg/dL (8.5-10.1); Potassium 4.1 mmol/L (3.5-5.1)
[2022-05-14 17:48] LABS: Bilirubin, Total 0.4 mg/dL (0.2-1.0); Total Protein 7.5 g/dL (6.4-8.2)
[2022-05-14] MEDS ORDERED: NITR-87 PO ×2 (20:23)
[2022-05-14 21:12] VITALS: BP 113/79
== END 2022-05-14 21:14 | disposition home or self-care (01) ==
LOC: ER 15:36
DX: N13.2 Hydronephrosis with renal and ureteral calculous obstruction (principal); N39.0 Urinary tract infection, site not specified
CPT/HCPCS: 36415; 74176; 80053; 81001; 85025

== ENCOUNTER 2022-05-16 16:40 | Inpatient (IN) | payer BC ==
[~2022-05-16] VITALS: Ht 157.5 cm; Wt 68.6 kg
[~2022-05-16 16:40] MED LIST: NITR-87 PO
[2022-05-16 17:49] LABS: Urine Bacteria NONE SEEN /hpf (None Seen); Urine Blood 3+ /uL (Negative); Urine Specific Gravity 1.012 (1.001-1.035); Urine WBC 1 /hpf (0 - 5)
[2022-05-16 18:27] LABS: Basophils # (auto) 0 10 ^3/uL (0-0.2); Basophils % (auto) 0.4 % (0.0-2.0); Eosinophils # (auto) 0.1 10 ^3/uL (0-0.8); Eosinophils % (auto) 2.1 % (0.0-7.0); Hematocrit 40.1 % (36.0-46.0); Hemoglobin 13.6 g/dL (12.2-16.2); Lymphocytes # (auto) 1.8 10 ^3/uL (0.4-5.4); Lymphocytes % (auto) 29.3 % (10.0-50.0); Mean Corpuscular Volume 91.2 fL (80.0-100.0); Monocytes # (auto) 0.5 10 ^3/uL (0-1.3); Monocytes % (auto) 7.4 % (0.0-12.0); Neutrophils # (auto) 3.7 10 ^3/uL (1.6-8.6); Neutrophils % (auto) 60.8 % (37.0-80.0); Nucleated Red Blood Cells % 0.2 %; Red Blood Cells 4.39 10^6/uL (4.0-5.20); Red Cell Distribution Width 14.5 % (11.8-14.3); White Blood Cell 6.1 10^3/uL (4.4-10.8)
[2022-05-16 18:44] LABS: Albumin 3.4 g/dL (3.4-5.0); Calcium 9.6 mg/dL (8.5-10.1); Potassium 3.8 mmol/L (3.5-5.1)
[2022-05-16 18:51] LABS: BUN/Creatinine Ratio 19.3; Bilirubin, Total 0.5 mg/dL (0.2-1.0); Total Protein 7.8 g/dL (6.4-8.2)
[2022-05-17] VITALS (7 sets, daily range): BP systolic 103–132; BP diastolic 56–80
[2022-05-17] MEDS ORDERED: MORPHINE SULFATE INJ 2 MG/ml SYRG IV PRN ×2 (01:15)
[2022-05-17] MEDS ORDERED: HYDROcodone-ACET 5/325MG TAB PO PRN (01:15)
[2022-05-17] MEDS ORDERED: NITROGLYCERIN 0.4 MG SL TAB SL PRN (01:15)
[2022-05-17] MEDS ORDERED: ONDANSETRON HCL 4 MG/2 ML VIAL IV PRN (01:15)
[2022-05-17 06:28] LABS: Basophils # (auto) 0 10 ^3/uL (0-0.2); Basophils % (auto) 0.3 % (0.0-2.0); Eosinophils # (auto) 0.2 10 ^3/uL (0-0.8); Eosinophils % (auto) 2.2 % (0.0-7.0); Hematocrit 40.4 % (36.0-46.0); Hemoglobin 13.8 g/dL (12.2-16.2); Lymphocytes % (auto) 28.4 % (10.0-50.0); Mean Corpuscular Hemoglobin 31.3 pg (28.0-32.0); Mean Corpuscular Hgb Conc. 34.2 g/dL (32.0-36.0); Mean Corpuscular Volume 91.6 fL (80.0-100.0); Monocytes # (auto) 0.6 10 ^3/uL (0-1.3); Monocytes % (auto) 8.4 % (0.0-12.0); Neutrophils # (auto) 4.3 10 ^3/uL (1.6-8.6); Neutrophils % (auto) 60.7 % (37.0-80.0); Red Blood Cells 4.41 10^6/uL (4.0-5.20); Red Cell Distribution Width 14.4 % (11.8-14.3); White Blood Cell 7.2 10^3/uL (4.4-10.8)
[2022-05-17 07:12] LABS: Potassium 3.9 mmol/L (3.5-5.1)
[2022-05-17 07:22] LABS: Albumin 3.7 g/dL (3.4-5.0); BUN/Creatinine Ratio 22.2; Bilirubin, Total 0.6 mg/dL (0.2-1.0); Calcium 9.6 mg/dL (8.5-10.1); Total Protein 7.8 g/dL (6.4-8.2)
[2022-05-17] MEDS: ACETAMINOPHEN 325 MG TAB PO PRN (07:37)
[2022-05-17] MEDS ORDERED: cefTRIAXone 1GM/50ML D5W 50 ML IV ONE (13:00)
[2022-05-17 14:38] LABS: INR 1.08 (0.9-1.15); Partial Thromboplastin Time 26.7 sec (24.6-33.4)
[2022-05-17] MEDS: SODIUM CHLORIDE 0.9% 1,000 ML IV SCH (15:11)
[2022-05-17] MEDS ORDERED: MIDAZOLAM HCL 2MG/2ML 2ml VIAL (1mg/ml) ONE (16:01)
[2022-05-17] MEDS ORDERED: fentaNYL CITRATE 100 MCG/2 ML VL ONE (16:01)
[2022-05-17] MEDS ORDERED: LIDOCAINE 2%HCL (LOCAL ANESTH.) INJ 10ml MDV ONE (16:04)
[2022-05-17] MEDS ORDERED: IODIXANOL 320MG/ML 100ML BTL IV ONE (16:08)
[2022-05-17] MEDS: TAMSULOSIN HYDROCHLORIDE 0.4 MG CAP PO SCH ×2 (18:00→18:37)
[2022-05-18] MEDS: SODIUM CHLORIDE 0.9% 1,000 ML IV SCH ×3 (02:20→20:17)
[2022-05-18 05:00] VITALS: BP 105/55
[2022-05-18 06:07] LABS: Basophils # (auto) 0 10 ^3/uL (0-0.2); Basophils % (auto) 0.4 % (0.0-2.0); Eosinophils # (auto) 0.2 10 ^3/uL (0-0.8); Hematocrit 36.8 % (36.0-46.0); Hemoglobin 12.4 g/dL (12.2-16.2); Lymphocytes # (auto) 1.7 10 ^3/uL (0.4-5.4); Lymphocytes % (auto) 27.8 % (10.0-50.0); Mean Corpuscular Hemoglobin 30.7 pg (28.0-32.0); Mean Corpuscular Hgb Conc. 33.8 g/dL (32.0-36.0); Mean Corpuscular Volume 90.8 fL (80.0-100.0); Monocytes # (auto) 0.5 10 ^3/uL (0-1.3); Monocytes % (auto) 7.7 % (0.0-12.0); Neutrophils # (auto) 3.6 10 ^3/uL (1.6-8.6); Neutrophils % (auto) 61.1 % (37.0-80.0); Red Blood Cells 4.05 10^6/uL (4.0-5.20); Red Cell Distribution Width 14.3 % (11.8-14.3); White Blood Cell 5.9 10^3/uL (4.4-10.8)
[2022-05-18 06:41] LABS: Albumin 2.8 g/dL (3.4-5.0); BUN/Creatinine Ratio 31.8; Calcium 8.8 mg/dL (8.5-10.1)
[2022-05-18 06:57] LABS: Bilirubin, Total 0.5 mg/dL (0.2-1.0); Total Protein 6.5 g/dL (6.4-8.2)
[2022-05-18 09:02] VITALS: BP 96/62
[2022-05-18] MEDS: cefTRIAXone 1GM/50ML D5W 50 ML IV SCH (09:51)
[2022-05-18 13:00] VITALS: BP 106/58
[2022-05-18 17:00] VITALS: BP 120/63
[2022-05-18] MEDS: TAMSULOSIN HYDROCHLORIDE 0.4 MG CAP PO SCH ×2 (18:00)
[2022-05-18 22:00] VITALS: BP 113/60
[2022-05-19 05:00] VITALS: BP 115/55
[2022-05-19 06:23] LABS: Basophils # (auto) 0 10 ^3/uL (0-0.2); Basophils % (auto) 0.7 % (0.0-2.0); Eosinophils # (auto) 0.2 10 ^3/uL (0-0.8); Eosinophils % (auto) 2.8 % (0.0-7.0); Hematocrit 35.1 % (36.0-46.0); Hemoglobin 12.1 g/dL (12.2-16.2); Lymphocytes # (auto) 2.1 10 ^3/uL (0.4-5.4); Lymphocytes % (auto) 38.6 % (10.0-50.0); Mean Corpuscular Hemoglobin 31.8 pg (28.0-32.0); Mean Corpuscular Hgb Conc. 34.5 g/dL (32.0-36.0); Mean Corpuscular Volume 92.2 fL (80.0-100.0); Monocytes # (auto) 0.4 10 ^3/uL (0-1.3); Monocytes % (auto) 7.6 % (0.0-12.0); Neutrophils # (auto) 2.7 10 ^3/uL (1.6-8.6); Neutrophils % (auto) 50.3 % (37.0-80.0); Nucleated Red Blood Cells % 0.2 %; Red Cell Distribution Width 14.1 % (11.8-14.3); White Blood Cell 5.5 10^3/uL (4.4-10.8)
[2022-05-19 07:07] LABS: BUN/Creatinine Ratio 30.9; Calcium 8.6 mg/dL (8.5-10.1); Potassium 4.2 mmol/L (3.5-5.1)
[2022-05-19] MEDS: cefTRIAXone 1GM/50ML D5W 50 ML IV SCH (08:20)
[2022-05-19 09:00] VITALS: BP 105/64
[2022-05-19 12:53] VITALS: BP 118/56
[2022-05-19 17:24] VITALS: BP 122/68
[2022-05-19] MEDS: TAMSULOSIN HYDROCHLORIDE 0.4 MG CAP PO SCH ×2 (17:33)
[2022-05-19] MEDS: SODIUM CHLORIDE 0.9% 1,000 ML IV SCH (17:33)
[2022-05-19 22:00] VITALS: BP 111/62
[2022-05-20 05:00] VITALS: BP 123/81
[2022-05-20] MEDS: SODIUM CHLORIDE 0.9% 1,000 ML IV SCH ×2 (07:40→23:17)
[2022-05-20] MEDS: cefTRIAXone 1GM/50ML D5W 50 ML IV SCH (08:11)
[2022-05-20 08:21] VITALS: BP 127/69
[2022-05-20 12:13] VITALS: BP 129/81
[2022-05-20 16:11] VITALS: BP 127/89
[2022-05-20] MEDS ORDERED: DexAMETHasone SOD PHOS 10MG/1ML VIAL INJ ONE (17:02)
[2022-05-20] MEDS ORDERED: ONDANSETRON HCL 4 MG/2 ML VIAL ONE (17:02)
[2022-05-20] MEDS ORDERED: GLYCOPYRROLATE 0.2 MG/ML 1ML VIAL ONE (17:02)
[2022-05-20] MEDS ORDERED: PROPOFOL 10 MG/ML 20 ML IV ONE (17:02)
[2022-05-20] MEDS ORDERED: fentaNYL CITRATE 100 MCG/2 ML VL ONE (17:02)
[2022-05-20] MEDS ORDERED: ePHEDrine SULFATE 50 MG/ML AMP ONE (17:02)
[2022-05-20] MEDS ORDERED: LIDOCAINE 2% (LOCAL ANESTH.) PF 5ml SDV ONE (17:02)
[2022-05-20] MEDS ORDERED: MEPERIDINE HCL (50 MG/ML) 1 ML VIAL ONE (17:02)
[2022-05-20] MEDS ORDERED: MIDAZOLAM HCL 2MG/2ML 2ml VIAL (1mg/ml) ONE (17:02)
[2022-05-20] MEDS ORDERED: IOHEXOL 300 MG/ML 100ML BOTTLE IJ ONE (17:03)
[2022-05-20] MEDS: TAMSULOSIN HYDROCHLORIDE 0.4 MG CAP PO SCH (18:00)
[2022-05-20] MEDS ORDERED: ONDANSETRON HCL 4 MG/2 ML VIAL IV PRN (18:15)
[2022-05-20] MEDS ORDERED: HYDROmorphone HCL 2 MG/ML VL/or syr IV PRN (18:15)
[2022-05-20 22:00] VITALS: BP 146/83
[2022-05-21] MEDS: ACETAMINOPHEN 325 MG TAB PO PRN ×2 (03:51→11:56)
[2022-05-21 05:00] VITALS: BP 111/71
[2022-05-21 06:34] LABS: Basophils # (auto) 0 10 ^3/uL (0-0.2); Basophils % (auto) 0.1 % (0.0-2.0); Eosinophils # (auto) 0 10 ^3/uL (0-0.8); Hematocrit 36.5 % (36.0-46.0); Hemoglobin 12.6 g/dL (12.2-16.2); Lymphocytes # (auto) 0.7 10 ^3/uL (0.4-5.4); Mean Corpuscular Hemoglobin 31.6 pg (28.0-32.0); Mean Corpuscular Hgb Conc. 34.5 g/dL (32.0-36.0); Mean Corpuscular Volume 91.8 fL (80.0-100.0); Monocytes # (auto) 0.1 10 ^3/uL (0-1.3); Monocytes % (auto) 1.3 % (0.0-12.0); Neutrophils # (auto) 4.4 10 ^3/uL (1.6-8.6); Neutrophils % (auto) 85.6 % (37.0-80.0); Red Blood Cells 3.98 10^6/uL (4.0-5.20); Red Cell Distribution Width 13.9 % (11.8-14.3); White Blood Cell 5.2 10^3/uL (4.4-10.8)
[2022-05-21 06:49] LABS: BUN/Creatinine Ratio 17.2; Calcium 9.1 mg/dL (8.5-10.1); Potassium 4.1 mmol/L (3.5-5.1)
[2022-05-21 08:30] VITALS: BP 132/81
[2022-05-21] MEDS: cefTRIAXone 1GM/50ML D5W 50 ML IV SCH (09:03)
[2022-05-21] MEDS ORDERED: LEVO500T31 PO (09:55)
[2022-05-21] MEDS ORDERED: TRAM50TA2 PO (09:55)
[2022-05-21] MEDS: SODIUM CHLORIDE 0.9% 1,000 ML IV SCH (10:20)
== END 2022-05-21 13:01 | disposition home health service (06) | DRG 694 ==
LOC: ER 16:40 → OVERFLOW 05-17 01:14 → CENTRAL 05-17 10:54
PROVIDERS: ADMIT Nurse Practitioner Family; ATTEND Internal Medicine
PROC: 0T9330Z Drainage of Right Kidney Pelvis with Drainage Device, Percutaneous Approach (ICD-10-PCS; principal; 2022-05-17)
PROC: BT111ZZ Fluoroscopy of Right Kidney using Low Osmolar Contrast (ICD-10-PCS; 2022-05-17)
PROC: 0TF6XZZ Fragmentation in Right Ureter, External Approach (ICD-10-PCS; 2022-05-20)
DX: N13.2 Hydronephrosis with renal and ureteral calculous obstruction (principal); Z20.822 Contact with and (suspected) exposure to COVID-19; Z80.3 Family history of malignant neoplasm of breast; Z85.3 Personal history of malignant neoplasm of breast; Z87.442 Personal history of urinary calculi; Z93.6 Other artificial openings of urinary tract status
CPT/HCPCS: 36415; 71045; 74018; 74176; 76775; 76942; 80048; 80053; 81001; 82360; 85025; 85610; 85730; 87081; 87426; 96365; G0378; J0696; J1100; J2001; J2250; J2405; J2704; Q9967

== ENCOUNTER 2022-05-31 11:13 | Emergency (ER) | payer BC ==
[~2022-05-31] VITALS: Ht 157.5 cm; Wt 60.0 kg
[~2022-05-31 11:13] MED LIST changes: +LEVO500T31 PO; -NITR-87 PO; +TRAM50TA2 PO
[2022-05-31 11:20] VITALS: BP 131/78
[2022-05-31 11:51] LABS: Basophils # (auto) 0.1 10 ^3/uL (0-0.2); Basophils % (auto) 0.9 % (0.0-2.0); Eosinophils # (auto) 0.1 10 ^3/uL (0-0.8); Eosinophils % (auto) 1.4 % (0.0-7.0); Hematocrit 39.5 % (36.0-46.0); Hemoglobin 13.2 g/dL (12.2-16.2); Lymphocytes % (auto) 32.1 % (10.0-50.0); Mean Corpuscular Hemoglobin 30.5 pg (28.0-32.0); Mean Corpuscular Hgb Conc. 33.4 g/dL (32.0-36.0); Mean Corpuscular Volume 91.5 fL (80.0-100.0); Monocytes # (auto) 0.4 10 ^3/uL (0-1.3); Monocytes % (auto) 6.4 % (0.0-12.0); Neutrophils # (auto) 3.7 10 ^3/uL (1.6-8.6); Neutrophils % (auto) 59.2 % (37.0-80.0); Nucleated Red Blood Cells % 0.1 %; Red Blood Cells 4.32 10^6/uL (4.0-5.20); Red Cell Distribution Width 14.2 % (11.8-14.3); White Blood Cell 6.2 10^3/uL (4.4-10.8)
[2022-05-31] MEDS ORDERED: LIDOCAINE 2%HCL (LOCAL ANESTH.) INJ 10ml MDV ONE (11:54)
[2022-05-31] MEDS ORDERED: IOHEXOL 300 MG/ML 100ML BOTTLE IJ ONE (11:54)
[2022-05-31 12:32] LABS: Albumin 3.4 g/dL (3.4-5.0); Potassium 3.5 mmol/L (3.5-5.1)
[2022-05-31 12:38] LABS: BUN/Creatinine Ratio 16.3; Bilirubin, Total 0.5 mg/dL (0.2-1.0); Total Protein 7.5 g/dL (6.4-8.2)
== END 2022-05-31 15:15 | disposition home or self-care (01) ==
LOC: ER 11:13
DX: T83.9XXD Unspecified complication of genitourinary prosthetic device, implant and graft, subsequent encounter (principal); R10.9 Unspecified abdominal pain; Z90.711 Acquired absence of uterus with remaining cervical stump; Z98.890 Other specified postprocedural states; Z87.442 Personal history of urinary calculi
CPT/HCPCS: 36415; 74425; 80053; 85025; 99284; J2001; Q9967

== ENCOUNTER → 2022-06-24 | Outpatient (CLI) | payer BC ==
[2022-06-24 11:36] LABS: Albumin 3.2 g/dL (3.4-5.0); BUN/Creatinine Ratio 15.9 (10.0-20.0); Bilirubin, Total 0.6 mg/dL (0.2-1.0); Calcium 9.3 mg/dL (8.5-10.1); Total Protein 7.3 g/dL (6.4-8.2)
== END | disposition home or self-care (01) ==
LOC: LAB 10:22
PROVIDERS: ATTEND Urology
DX: N13.0 Hydronephrosis with ureteropelvic junction obstruction (principal); N13.2 Hydronephrosis with renal and ureteral calculous obstruction
CPT/HCPCS: 36415; 80053

== ENCOUNTER → 2022-06-28 | Outpatient (CLI) | payer BC ==
[2022-06-28 11:38] LABS: Potassium 3.9 mmol/L (3.5-5.1)
[2022-06-28 11:48] LABS: BUN/Creatinine Ratio 19.4 (10.0-20.0); Calcium 9.6 mg/dL (8.5-10.1)
== END | disposition home or self-care (01) ==
LOC: LAB 10:13
PROVIDERS: ATTEND Internal Medicine
DX: N13.2 Hydronephrosis with renal and ureteral calculous obstruction (principal); N13.0 Hydronephrosis with ureteropelvic junction obstruction
CPT/HCPCS: 36415; 80048

== ENCOUNTER → 2022-07-01 | Outpatient (CLI) | payer BC ==
[~2022-07-01] MED LIST changes: +FUROSEMIDE 40 MG/4 ML VIAL IV ONE; +FUROSEMIDE 40 MG/4 ML VIAL ONE
== END | disposition home or self-care (01) ==
LOC: XYW 08:34
PROVIDERS: ATTEND Internal Medicine
DX: N13.2 Hydronephrosis with renal and ureteral calculous obstruction (principal); N13.0 Hydronephrosis with ureteropelvic junction obstruction
CPT/HCPCS: 78707; A9562; J1940

== ENCOUNTER 2022-07-09 07:55 | Inpatient (IN) | payer BC ==
[~2022-07-09] VITALS: Ht 157.5 cm; Wt 60.2 kg
[~2022-07-09 07:55] MED LIST changes: -FUROSEMIDE 40 MG/4 ML VIAL IV ONE; -FUROSEMIDE 40 MG/4 ML VIAL ONE
[2022-07-09 09:01] LABS: Urine Bacteria FEW /hpf (None Seen); Urine Blood TRACE /uL (Negative); Urine Specific Gravity 1.003 (1.001-1.035); Urine WBC 36 /hpf (0 - 5)
[2022-07-09] MEDS ORDERED: cefTRIAXone 1GM/50ML D5W 50 ML IV ONE (12:15)
[2022-07-09 12:43] LABS: Basophils # (auto) 0 10 ^3/uL (0-0.2); Basophils % (auto) 0.5 % (0.0-2.0); Eosinophils # (auto) 0.1 10 ^3/uL (0-0.8); Eosinophils % (auto) 1.1 % (0.0-7.0); Hematocrit 41.3 % (36.0-46.0); Hemoglobin 13.6 g/dL (12.2-16.2); Lymphocytes # (auto) 1.7 10 ^3/uL (0.4-5.4); Mean Corpuscular Hemoglobin 30.2 pg (28.0-32.0); Mean Corpuscular Hgb Conc. 32.8 g/dL (32.0-36.0); Mean Corpuscular Volume 92.2 fL (80.0-100.0); Monocytes # (auto) 0.5 10 ^3/uL (0-1.3); Monocytes % (auto) 6.1 % (0.0-12.0); Neutrophils # (auto) 6.1 10 ^3/uL (1.6-8.6); Neutrophils % (auto) 72.3 % (37.0-80.0); Nucleated Red Blood Cells % 0.1 %; Red Blood Cells 4.48 10^6/uL (4.0-5.20); Red Cell Distribution Width 14.6 % (11.8-14.3); White Blood Cell 8.4 10^3/uL (4.4-10.8)
[2022-07-09 12:51] LABS: Potassium 4.3 mmol/L (3.5-5.1)
[2022-07-09 12:58] LABS: Albumin 3.6 g/dL (3.4-5.0); BUN/Creatinine Ratio 30.3 (10.0-20.0); Bilirubin, Total 0.4 mg/dL (0.2-1.0); Calcium 9.2 mg/dL (8.5-10.1); Total Protein 7.4 g/dL (6.4-8.2)
[2022-07-09 13:17] LABS: INR 1.04 (0.9-1.15); Partial Thromboplastin Time 28.8 sec (24.6-33.4)
[2022-07-09] MEDS ORDERED: ONDANSETRON HCL 4 MG/2 ML VIAL IV PRN (14:00)
[2022-07-09] MEDS ORDERED: ACETAMINOPHEN 325 MG TAB PO PRN ×2 (14:00)
[2022-07-09] MEDS ORDERED: NITROGLYCERIN 0.4 MG SL TAB SL PRN (14:00)
[2022-07-10 06:46] LABS: Basophils # (auto) 0 10 ^3/uL (0-0.2); Basophils % (auto) 0.7 % (0.0-2.0); Eosinophils # (auto) 0.1 10 ^3/uL (0-0.8); Eosinophils % (auto) 2.5 % (0.0-7.0); Hematocrit 39.1 % (36.0-46.0); Hemoglobin 13.1 g/dL (12.2-16.2); Lymphocytes # (auto) 1.7 10 ^3/uL (0.4-5.4); Lymphocytes % (auto) 32.8 % (10.0-50.0); Mean Corpuscular Hemoglobin 30.6 pg (28.0-32.0); Mean Corpuscular Hgb Conc. 33.6 g/dL (32.0-36.0); Mean Corpuscular Volume 91.2 fL (80.0-100.0); Monocytes # (auto) 0.4 10 ^3/uL (0-1.3); Monocytes % (auto) 8.1 % (0.0-12.0); Neutrophils # (auto) 2.8 10 ^3/uL (1.6-8.6); Neutrophils % (auto) 55.9 % (37.0-80.0); Nucleated Red Blood Cells % 0.1 %; Red Blood Cells 4.29 10^6/uL (4.0-5.20); Red Cell Distribution Width 14.8 % (11.8-14.3); White Blood Cell 5.1 10^3/uL (4.4-10.8)
[2022-07-10 07:03] LABS: Calcium 9.3 mg/dL (8.5-10.1); Potassium 3.8 mmol/L (3.5-5.1)
[2022-07-10 07:06] LABS: BUN/Creatinine Ratio 29.3 (10.0-20.0); Bilirubin, Total 0.4 mg/dL (0.2-1.0); Total Protein 7.2 g/dL (6.4-8.2)
[2022-07-10] MEDS ORDERED: cefTRIAXone 1GM/50ML D5W 50 ML IV SCH (09:00)
[2022-07-10] MEDS ORDERED: PANTOPRAZOLE 40 MG/10 ML VIAL INJ IV SCH (10:00)
[2022-07-10] MEDS ORDERED: MIDAZOLAM HCL 2MG/2ML 2ml VIAL (1mg/ml) IV ONE (12:15)
[2022-07-10] MEDS ORDERED: fentaNYL CITRATE 100 MCG/2 ML VL IV ONE (12:15)
[2022-07-10] MEDS ORDERED: IOHEXOL 300 MG/ML 100ML BOTTLE IJ ONE (13:04)
[2022-07-10] MEDS ORDERED: SODIUM CHLORIDE 0.9% 1,000 ML IV SCH (13:45)
[2022-07-10] MEDS ORDERED: NITR-87 PO (14:12)
[2022-07-10] MEDS ORDERED: SODIUM CHLORIDE 0.9% 250 ML IV ONE (14:15)
[2022-07-10 16:16] VITALS: BP 118/67
== END 2022-07-10 17:05 | disposition home or self-care (01) | DRG 699 ==
LOC: ER 07:55 → OVERFLOW 14:35
PROVIDERS: ADMIT Nurse Practitioner Family; ATTEND Internal Medicine
DX: T83.092A Other mechanical complication of nephrostomy catheter, initial encounter (principal); N30.01 Acute cystitis with hematuria; Y73.2 Prosthetic and other implants, materials and accessory gastroenterology and urology devices associated with adverse incidents; Z87.442 Personal history of urinary calculi; Z85.3 Personal history of malignant neoplasm of breast; Z90.710 Acquired absence of both cervix and uterus; Z90.11 Acquired absence of right breast and nipple; Z87.440 Personal history of urinary (tract) infections
CPT/HCPCS: 36415; 74176; 80053; 81001; 84484; 85025; 85610; 85730; 87086; C9113; G0378; J0696; J2250

== ENCOUNTER 2022-08-13 06:21 | Inpatient (IN) | payer BC, OTHER ==
[2022-08-09 10:50] LABS: Urine Bacteria NONE SEEN /hpf (None Seen); Urine Blood Negative /uL (Negative); Urine Specific Gravity 1.003 (1.001-1.035); Urine WBC <1 /hpf (0 - 5)
[2022-08-09 10:53] LABS: Basophils # (auto) 0 10 ^3/uL (0-0.2); Basophils % (auto) 0.7 % (0.0-2.0); Eosinophils # (auto) 0.1 10 ^3/uL (0-0.8); Eosinophils % (auto) 2.1 % (0.0-7.0); Hematocrit 40.8 % (36.0-46.0); Hemoglobin 13.8 g/dL (12.2-16.2); Lymphocytes # (auto) 1.9 10 ^3/uL (0.4-5.4); Lymphocytes % (auto) 32.1 % (10.0-50.0); Mean Corpuscular Hemoglobin 31.3 pg (28.0-32.0); Mean Corpuscular Volume 92.2 fL (80.0-100.0); Monocytes # (auto) 0.4 10 ^3/uL (0-1.3); Monocytes % (auto) 6.5 % (0.0-12.0); Neutrophils # (auto) 3.4 10 ^3/uL (1.6-8.6); Neutrophils % (auto) 58.6 % (37.0-80.0); Nucleated Red Blood Cells % 0.1 %; Red Blood Cells 4.42 10^6/uL (4.0-5.20); Red Cell Distribution Width 14.6 % (11.8-14.3); White Blood Cell 5.8 10^3/uL (4.4-10.8)
[2022-08-09 11:15] LABS: Albumin 3.7 g/dL (3.4-5.0); Calcium 9.5 mg/dL (8.5-10.1); Potassium 3.9 mmol/L (3.5-5.1)
[2022-08-09 11:19] LABS: Bilirubin, Total 0.5 mg/dL (0.2-1.0); Total Protein 7.9 g/dL (6.4-8.2)
[2022-08-09 16:38] LABS: INR 1.08 (0.9-1.15); Partial Thromboplastin Time 26.2 sec (24.6-33.4)
[~2022-08-13] VITALS: Ht 157.5 cm; Wt 62.0 kg
[2022-08-13] MEDS ORDERED: ACETAMINOPHEN 500 MG TAB PO ONE (06:45)
[2022-08-13] MEDS ORDERED: CELECOXIB 100 MG CAP PO ONE (06:45)
[2022-08-13] MEDS ORDERED: GABAPENTIN 100 MG CAP PO ONE (06:45)
[2022-08-13] MEDS ORDERED: PROPOFOL 10 MG/ML 20 ML IV ONE (06:48)
[2022-08-13] MEDS ORDERED: ONDANSETRON HCL 4 MG/2 ML VIAL ONE (06:49)
[2022-08-13] MEDS ORDERED: ROCURONIUM 10MG/ML 10ML VIAL IV ONE (06:49)
[2022-08-13] MEDS ORDERED: LIDOCAINE 2% (LOCAL ANESTH.) PF 5ml SDV ONE (06:49)
[2022-08-13] MEDS ORDERED: KETOROLAC TROMETH 30 MG/ML 1ML VIAL ONE (06:49)
[2022-08-13] MEDS ORDERED: GLYCOPYRROLATE 0.2 MG/ML 1ML VIAL ONE (06:49)
[2022-08-13] MEDS ORDERED: DexAMETHasone SOD PHOS 10MG/1ML VIAL INJ ONE (06:49)
[2022-08-13] MEDS ORDERED: SUGAMMADEX 200mg/2ml Vial (100MG/ML) IV ONE (06:52)
[2022-08-13] MEDS ORDERED: fentaNYL CITRATE 100 MCG/2 ML VL ONE (06:52)
[2022-08-13] MEDS ORDERED: DexAMETHasone SOD PHOS 4 MG/1ML SDV INJ ONE (06:54)
[2022-08-13] MEDS ORDERED: LIDOCAINE 2% JELLY 11ml (GLYDO) ONE (06:55)
[2022-08-13] MEDS ORDERED: BUPIVACAINE W/ EPINEPH 0.25% INJ 50ML MDV ONE (06:55)
[2022-08-13] MEDS ORDERED: BUPIVACAINE 0.25% INJ 50ML VIAL ONE (06:57)
[2022-08-13] MEDS ORDERED: LIDOCAINE W/ EPINEPHRINE 1% 20ML VIAL ONE (06:57)
[2022-08-13] MEDS ORDERED: ACETAMINOPHEN IV 100 ML IV ONE (07:11)
[2022-08-13] MEDS ORDERED: ACETAMINOPHEN IV 1000 MG/100ML (10MG/ML) IV ONE (07:45)
[2022-08-13] MEDS ORDERED: PHENYLEPHRINE HCL 10 MG/ML VL IV ONE (08:09)
[2022-08-13] MEDS ORDERED: KETAMINE 50mg/ML 10ml Vial (500mg/10ml) IV ONE (08:09)
[2022-08-13] MEDS ORDERED: ESMOLOL HCL 10 ML IV ONE (08:38)
[2022-08-13] MEDS ORDERED: hydrALAZINE HCL 20 MG/ML VL IV PRN (10:00)
[2022-08-13] MEDS ORDERED: ePHEDrine SULFATE 50 MG/ML AMP IV PRN (10:00)
[2022-08-13] MEDS ORDERED: fentaNYL CITRATE 100 MCG/2 ML VL IV PRN (10:00)
[2022-08-13] MEDS ORDERED: ONDANSETRON HCL 4 MG/2 ML VIAL IV PRN (10:00)
[2022-08-13] MEDS ORDERED: LABETALOL HCL 5 MG/ML 4ML SYRINGE IV PRN (10:00)
[2022-08-13] MEDS ORDERED: FLUMAZENIL 0.1 MG/ML INJ 10ML MDV IV PRN (10:00)
[2022-08-13] MEDS ORDERED: HYDROmorphone HCL 2 MG/ML VL/or syr IV PRN (10:00)
[2022-08-13] MEDS ORDERED: NALOXONE HCL 0.4 MG/ML VIAL IV PRN (10:00)
[2022-08-13 13:30] VITALS: BP 139/75
[2022-08-13] MEDS ORDERED: NITROGLYCERIN 0.4 MG SL TAB SL PRN (13:45)
[2022-08-13] MEDS ORDERED: MORPHINE SULFATE INJ 2 MG/ml SYRG IV PRN (13:45)
[2022-08-13] MEDS: cefOXitin 2GM/100ML 100 ML IV SCH ×2 (14:20→22:40)
[2022-08-13 17:00] VITALS: BP 132/79
[2022-08-13 22:00] VITALS: BP 116/63
[2022-08-13] MEDS: oxyCODONE HCL 5MG TAB PO PRN (23:18)
[2022-08-14 05:00] VITALS: BP 112/63
[2022-08-14] MEDS: cefOXitin 2GM/100ML 100 ML IV SCH ×3 (06:07→22:02)
[2022-08-14 08:00] VITALS: BP 143/88
[2022-08-14 09:00] VITALS: BP 135/76
[2022-08-14] MEDS: oxyCODONE HCL 5MG TAB PO PRN ×2 (12:14→19:54)
[2022-08-14 13:00] VITALS: BP 136/76
[2022-08-14 17:00] VITALS: BP 105/63
[2022-08-14 22:00] VITALS: BP 112/56
[2022-08-14] MEDS: DOCUSATE SOD 100 MG CAP PO SCH (22:02)
[2022-08-15] VITALS (7 sets, daily range): BP systolic 111–130; BP diastolic 61–75
[2022-08-15 05:50] LABS: Basophils # (auto) 0 10 ^3/uL (0-0.2); Basophils % (auto) 0.3 % (0.0-2.0); Eosinophils # (auto) 0.1 10 ^3/uL (0-0.8); Hematocrit 36.9 % (36.0-46.0); Hemoglobin 12.3 g/dL (12.2-16.2); Lymphocytes # (auto) 2.3 10 ^3/uL (0.4-5.4); Lymphocytes % (auto) 22.6 % (10.0-50.0); Mean Corpuscular Hemoglobin 31.5 pg (28.0-32.0); Mean Corpuscular Hgb Conc. 33.4 g/dL (32.0-36.0); Mean Corpuscular Volume 94.2 fL (80.0-100.0); Monocytes # (auto) 0.6 10 ^3/uL (0-1.3); Monocytes % (auto) 6.1 % (0.0-12.0); Neutrophils # (auto) 7.1 10 ^3/uL (1.6-8.6); Red Blood Cells 3.92 10^6/uL (4.0-5.20); Red Cell Distribution Width 14.7 % (11.8-14.3); White Blood Cell 10.1 10^3/uL (4.4-10.8)
[2022-08-15] MEDS: cefOXitin 2GM/100ML 100 ML IV SCH ×3 (06:07→21:42)
[2022-08-15 06:22] LABS: Potassium 4.2 mmol/L (3.5-5.1)
[2022-08-15 06:33] LABS: Albumin 2.8 g/dL (3.4-5.0); BUN/Creatinine Ratio 20.3 (10.0-20.0); Bilirubin, Total 0.5 mg/dL (0.2-1.0); Calcium 8.3 mg/dL (8.5-10.1); Total Protein 6.3 g/dL (6.4-8.2)
[2022-08-15] MEDS: DOCUSATE SOD 100 MG CAP PO SCH ×2 (08:14→21:42)
[2022-08-15] MEDS: oxyCODONE HCL 5MG TAB PO PRN (08:20)
[2022-08-15] MEDS ORDERED: TRAM50TA2 PO (12:36)
[2022-08-15] MEDS ORDERED: DOCU-94 PO (12:36)
[2022-08-15] MEDS ORDERED: LEVO750T8 PO (12:36)
[2022-08-15] MEDS ORDERED: DOCUSATE SOD 100 MG CAP PO ONE (12:45)
[2022-08-15] MEDS ORDERED: LACTULOSE 20Gm/30ML SOLN PO ONE (12:45)
[2022-08-16 05:00] VITALS: BP 119/72
[2022-08-16] MEDS: cefOXitin 2GM/100ML 100 ML IV SCH (05:52)
[2022-08-16] MEDS: DOCUSATE SOD 100 MG CAP PO SCH (10:00)
== END 2022-08-16 08:10 | disposition home or self-care (01) | DRG 661 ==
LOC: SUR 06:21 → OVERFLOW 13:40 → WEST WING 14:08
PROVIDERS: ADMIT Urology; ATTEND Internal Medicine
PROC: 8E0W4CZ Robotic Assisted Procedure of Trunk Region, Percutaneous Endoscopic Approach (ICD-10-PCS; 2022-08-13)
PROC: 0TP5X0Z Removal of Drainage Device from Kidney, External Approach (ICD-10-PCS; 2022-08-13)
PROC: 0TQ34ZZ Repair Right Kidney Pelvis, Percutaneous Endoscopic Approach (ICD-10-PCS; principal; 2022-08-13 07:40)
DX: N13.30 Unspecified hydronephrosis (principal); Z85.3 Personal history of malignant neoplasm of breast
CPT/HCPCS: 36415; 71045; 74018; 80053; 81001; 85025; 85610; 85730; 86850; 86900; 86901; 87086; G0378; J0131; J0694; J1100; J1885; J2001; J2405; J2704; J3490

== ENCOUNTER → 2022-09-02 | Outpatient (CLI) | payer BC ==
[~2022-09-02] MED LIST changes: +DOCU-94 PO; -LEVO500T31 PO; +LEVO750T8 PO
[2022-09-02 12:29] LABS: Urine Bacteria NONE SEEN /hpf (None Seen); Urine Blood 3+ /uL (Negative); Urine Mucus FEW (None Seen); Urine Specific Gravity 1.019 (1.001-1.035); Urine WBC 74 /hpf (0 - 5)
== END | disposition home or self-care (01) ==
LOC: LAB 12:02
PROVIDERS: ATTEND Urology
DX: N39.0 Urinary tract infection, site not specified (principal)
CPT/HCPCS: 81001; 87086

== ENCOUNTER → 2023-01-22 | Outpatient (CLI) | payer BC ==
[2023-01-22 11:59] LABS: Anion Gap 7 (5-15); Carbon Dioxide 27 mmol/L (20-30); Chloride 100 mmol/L (98-107); Potassium 3.9 mmol/L (3.5-5.1); Sodium 134 mmol/L (136-145)
[2023-01-22 12:01] LABS: Calcium 9.4 mg/dL (8.5-10.1)
[2023-01-22 12:05] LABS: BUN/Creatinine Ratio 12.8 (10.0-20.0); Blood Urea Nitrogen 10 mg/dL (9-23); Glucose 103 mg/dL (74-106)
== END | disposition home or self-care (01) ==
LOC: LAB 10:58
PROVIDERS: ATTEND Urology
DX: N13.5 Crossing vessel and stricture of ureter without hydronephrosis (principal)
CPT/HCPCS: 36415; 80048

== ENCOUNTER → 2023-02-26 | Outpatient (CLI) | payer BC ==
[2023-02-26 11:34] LABS: Basophils # (auto) 0 10 ^3/uL (0-0.2); Basophils % (auto) 0.5 % (0.0-2.0); Eosinophils # (auto) 0.1 10 ^3/uL (0-0.8); Eosinophils % (auto) 1.1 % (0.0-7.0); Hematocrit 39.1 % (36.0-46.0); Lymphocytes # (auto) 1.8 10 ^3/uL (0.4-5.4); Mean Corpuscular Hemoglobin 30.8 pg (28.0-32.0); Mean Corpuscular Hgb Conc. 33.3 g/dL (32.0-36.0); Mean Corpuscular Volume 92.6 fL (80.0-100.0); Monocytes # (auto) 0.5 10 ^3/uL (0-1.3); Neutrophils # (auto) 5.3 10 ^3/uL (1.6-8.6); Neutrophils % (auto) 69.4 % (37.0-80.0); Red Blood Cells 4.22 10^6/uL (4.0-5.20); Red Cell Distribution Width 14.3 % (11.8-14.3); White Blood Cell 7.7 10^3/uL (4.4-10.8)
[2023-02-26 12:33] LABS: Erythrocyte Sedimentation Rate 16 mm/hr (0-20)
[2023-02-26 12:49] LABS: Alanine Aminotransferase 15 U/L (7-40); Albumin 4.3 g/dL (3.2-4.8); Alkaline Phosphatase 83 U/L (46-116); Anion Gap 5 (5-15); Aspartate Aminotransferase 19 U/L (13-40); BUN/Creatinine Ratio 20.3 (10.0-20.0); Bilirubin, Total 0.7 mg/dL (0.2-1.0); Blood Urea Nitrogen 15 mg/dL (9-23); CRP High Sensitivity 0.13 mg/dL (<1.0); Calcium 9.6 mg/dL (8.5-10.1); Carbon Dioxide 28 mmol/L (20-30); Chloride 107 mmol/L (98-107); Creatine Kinase IFCC 145 U/L (34-145); Glucose 88 mg/dL (74-106); Potassium 4.3 mmol/L (3.5-5.1); Sodium 140 mmol/L (136-145); Total Protein 7.1 g/dL (5.7-8.2)
== END | disposition home or self-care (01) ==
LOC: LAB 11:10
PROVIDERS: ATTEND Internal Medicine Rheumatology
DX: Z00.01 Encounter for general adult medical examination with abnormal findings (principal); M75.50 Bursitis of unspecified shoulder; I67.2 Cerebral atherosclerosis; M81.0 Age-related osteoporosis without current pathological fracture
CPT/HCPCS: 36415; 80053; 82550; 83615; 85025; 85652; 86141

== ENCOUNTER → 2023-05-08 | Outpatient (CLI) | payer BC ==
[2023-05-08 10:09] LABS: Basophils # (auto) 0 10 ^3/uL (0-0.2); Basophils % (auto) 0.8 % (0.0-2.0); Eosinophils # (auto) 0.1 10 ^3/uL (0-0.8); Eosinophils % (auto) 2.2 % (0.0-7.0); Hematocrit 39.2 % (36.0-46.0); Hemoglobin 12.9 g/dL (12.2-16.2); Lymphocytes # (auto) 1.5 10 ^3/uL (0.4-5.4); Lymphocytes % (auto) 28.8 % (10.0-50.0); Mean Corpuscular Hemoglobin 30.3 pg (28.0-32.0); Mean Corpuscular Volume 91.9 fL (80.0-100.0); Monocytes # (auto) 0.4 10 ^3/uL (0-1.3); Monocytes % (auto) 7.6 % (0.0-12.0); Neutrophils # (auto) 3.2 10 ^3/uL (1.6-8.6); Neutrophils % (auto) 60.6 % (37.0-80.0); Nucleated Red Blood Cells % 0.1 %; Red Blood Cells 4.26 10^6/uL (4.0-5.20); Red Cell Distribution Width 14.4 % (11.8-14.3); White Blood Cell 5.3 10^3/uL (4.4-10.8)
[2023-05-08 10:16] LABS: Urine Bacteria NONE SEEN /hpf (None Seen); Urine Blood Negative /uL (Negative); Urine Clarity Clear (Clear); Urine Protein, UAD Negative (Negative); Urine Specific Gravity 1.013 (1.001-1.035); Urine Urobilinogen Normal (Negative); Urine WBC <1 /hpf (0 - 5); Urine pH 6.5 (5.0-8.0)
[2023-05-08 10:18] LABS: Urine Color Yellow (Yellow)
[2023-05-08 10:44] LABS: Triglycerides 55 mg/dL (< 150)
[2023-05-08 10:45] LABS: Alanine Aminotransferase 12 U/L (7-40); Albumin 4.2 g/dL (3.2-4.8); Alkaline Phosphatase 92 U/L (46-116); Anion Gap 6 (5-15); Aspartate Aminotransferase 21 U/L (13-40); BUN/Creatinine Ratio 18.3 (10.0-20.0); Bilirubin, Total 0.7 mg/dL (0.2-1.0); Blood Urea Nitrogen 13 mg/dL (9-23); Calcium 9.6 mg/dL (8.5-10.1); Carbon Dioxide 28 mmol/L (20-30); Chloride 106 mmol/L (98-107); Cholesterol 170 mg/dL (< 200); Glucose 90 mg/dL (74-106); HDL Cholesterol 65 mg/dL (40-59); LDL Cholesterol 90 mg/dL (< 100); Sodium 140 mmol/L (136-145); Total Protein 6.8 g/dL (5.7-8.2)
[2023-05-08 10:48] LABS: Erythrocyte Sedimentation Rate 20 mm/hr (0-20)
== END | disposition home or self-care (01) ==
LOC: LAB 09:49
PROVIDERS: ATTEND Internal Medicine
DX: M81.0 Age-related osteoporosis without current pathological fracture (principal); M85.88 Other specified disorders of bone density and structure, other site; I70.0 Atherosclerosis of aorta
CPT/HCPCS: 36415; 80053; 80061; 81001; 82306; 82330; 83970; 84439; 84443; 85025; 85652

== ENCOUNTER 2024-02-21 12:31 | Inpatient (IN) | payer BC, OTHER ==
[~2024-02-21] VITALS: Ht 157.5 cm; Wt 64.2 kg
--- NOTE | 2024-02-21 14:08 | DVH ---
CHEST RADIOGRAPH Indication: cough Technique: Single frontal view of the chest was obtained COMPARISON: XY CHEST XRAY 1 VIEW on DOS: 08/13/22, XY CHEST PORTABLE on DOS: 05/19/22 FINDINGS: Lines and Tubes: None Lungs: Clear Pleura: No effusion. No pneumothorax. Cardiomediastinal contours: Unremarkable Bones: Unremarkable IMPRESSION: 1. No acute disease.
[2024-02-21 14:21] LABS: Basophils # (auto) 0 10 ^3/uL (0-0.2); Basophils % (auto) 0.2 % (0.0-2.0); Eosinophils # (auto) 0 10 ^3/uL (0-0.8); Eosinophils % (auto) 0.3 % (0.0-7.0); Hematocrit 39.4 % (36.0-46.0); Hemoglobin 13.7 g/dL (12.2-16.2); Lymphocytes # (auto) 1.5 10 ^3/uL (0.4-5.4); Lymphocytes % (auto) 9.9 % (10.0-50.0); Mean Corpuscular Hemoglobin 31.7 pg (28.0-32.0); Mean Corpuscular Hgb Conc. 34.8 g/dL (32.0-36.0); Mean Corpuscular Volume 91.1 fL (80.0-100.0); Monocytes # (auto) 1.1 10 ^3/uL (0-1.3); Monocytes % (auto) 7.7 % (0.0-12.0); Neutrophils # (auto) 12.1 10 ^3/uL (1.6-8.6); Neutrophils % (auto) 81.9 % (37.0-80.0); Platelet Count (auto) 335 10^3/uL (140-450); Red Blood Cells 4.33 10^6/uL (4.0-5.20); Red Cell Distribution Width 14.1 % (11.8-14.3); White Blood Cell 14.8 10^3/uL (4.4-10.8)
[2024-02-21 14:31] LABS: Chloride 98 mmol/L (98-107); Potassium 4.3 mmol/L (3.5-5.1)
[2024-02-21 14:32] LABS: Anion Gap 8 (5-15); Calcium 10.3 mg/dL (8.7-10.4); Carbon Dioxide 27 mmol/L (20-31)
[2024-02-21 14:37] LABS: BUN/Creatinine Ratio 25.4 (10.0-20.0)
[2024-02-21 14:38] LABS: Blood Urea Nitrogen 29 mg/dL (9-23); Glucose 107 mg/dL (74-106); Sodium 133 mmol/L (136-145)
--- NOTE | 2024-02-21 14:39 | ED.PDOC ---
History of Present Illness HPI Comments 83 year old female presents to the ED with a chief complaint of generalized body weakness, nausea, vomiting onset 6 days ago. Patient states she was seen in the ED for Bronchitis about 2 weeks ago, was prescribed medication and symptoms improved. She is currently experiencing nausea, vomiting, constipation, fatigue, chills, sweats, loss of appetite, generalized weakness. She has a past medical history of HDL, Breast cancer, Osteopenia and denies chest pain, diarrhea, cough, sore throat, fever. No other symptoms or modifying factors present at this time. Chief Complaint: Flu like Time Seen by MD: 14:20 Primary Care Provider: MONA Mayfield Notes: Medications, Allergies Allergies: Coded Allergies: NO KNOWN ALLERGIES (Unverified , 04/03/15) Home Meds Active Scripts Docusate Sodium (Colace) 100 Mg Cap, 100 MG PO BIDP PRN for 30 Days, #40 CAP Prov:TABITHA SALAMANCA MD 08/15/22 Tramadol Hcl (Tramadol Hcl) 50 Mg Tab, 50 MG PO TIDPRN PRN for 6 Days, #18 TAB Prov:TABITHA SALAMANCA MD 08/15/22 Levofloxacin (Levaquin 750 mg) 750 Mg Tab, 500 MG PO DAILY for 7 Days, #7 TAB Prov:TABITHA SALAMANCA MD 08/15/22 Information Source: Patient Mode of Arrival: Ambulatory Severity: Moderate Timing: Days Duration: Since onset Prehospital treatment: Pain Meds (Tylenol ) Past Medical History PAST MEDICAL HISTORY: Cancer, High Lipids, Kidney Stones, UTI'S Past Medical History (Other): Osteopenia Surgical History: Hysterectomy Surgical History (Other): Mastectomy [employer]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 Family History Family History: Reviewed,noncontributory to illness Social History Smoker: Non-Smoker Alcohol: Denies ETOH Use Drugs: Denies Drug Use Lives In: Home Constitutional: reports: chills, fatigue, sweats, weakness; denies: diaphoresis, fever, malaise, others EENTM: reports: nose congestion; denies: blurred vision, double vision, ear bleeding, ear discharge, ear drainage, ear pain, ear ringing, eye pain, eye redness, hearing loss, mouth pain, mouth swelling, nasal discharge, nose bleeding, nose pain, photophobia, tearing, throat pain, throat swelling, voice changes, others Respiratory: denies: cough, hemoptysis, orthopnea, SOB at rest, shortness of breath, SOB with excertion, stridor, wheezing, others Cardiovascular: denies: chest pain, dizzy spells, diaphoresis, Dyspnea on exertion, edema, irregular heart beat, left arm pain, lightheadedness, palpitations, PND, syncope, others Gastrointestinal: reports: constipated, nausea, poor appetite, vomiting; denies: abdomen distended, abdominal pain, blood streaked bowels, diarrhea, dysphagia, difficulty swallowing, hematemesis, melena, poor fluid intake, rectal bleeding, rectal pain, others Genitourinary: denies: abnormal vagina bleeding, burning, dyspareunia, dysuria, flank pain, frequency, hematuria, incontinence, pain, , vagina discharge, urgency, others Neurological: denies: dizziness, fainting, headache, left sided numbness, left sided weakness, numbness, paresthesia, pre-existing deficit, right sided numbness, right sided weakness, seizure, speech problems, tingling, tremors, weakness, others Musculoskeletal: denies: back pain, gout, joint pain, joint swelling, muscle pain, muscle stiffness, neck pain, others Integumetry: denies: bruises, change in color, change in hair/nails, dryness, laceration, lesions, lumps, rash, wounds, others Allergic/Immunocompromised: denies: Difficulty Healing, Frequent Infections, Hives, Itching, others Hematologic/Lymphatic: denies: anemia, blood clots, easy bleeding, easy bruising, swollen glands, others Endocrine: denies: excessive hunger, excessive sweating, excessive thirst, excessive urination, flushing, intolerance to cold, intolerance to heat, unexplained weight gain, unexplained weight loss, others Psychiatric: denies: anxiety, bipolar disorder, depression, hopeless, panic disorder, schizophrenia, sleepless, suicidal, others All Other Systems: Reviewed and Negative Physical Exam General Appearance: No Apparent Distress, Thin, Other (Ill-appearing) HEENT: Other (Moist mucous membranes, no facial asymmetry, pupils symmetric) Neck: Full Range of Motion, Normal Inspection Respiratory: Lungs Clear, No Accessory Muscle Use, No Respiratory Distress, Normal Breath Sounds Cardiovascular: No Edema, No JVD, Regular Rate/Rhythm Breast Exam: Deferred Gastrointestinal: Non Tender, Soft Genitalia: Deferred Pelvic: Deferred Rectal: Deferred Extremities: Normal inspection, Normal range of motion, Non-tender, No pedal edema Neurologic: Alert, Normal Affect, Normal Mood, Other (Ambulatory without difficulty. No gross focal deficit.) Cerebellar Function: NOT DONE Reflexes: NOT DONE Skin: Dry, Normal Color, Warm Lymphatic: NOT DONE Was a procedure done? Was a procedure done?: No EKG EKG : Comments Sinus tach, rate 103, normal intervals, right axis deviation, no ST/T changes. Differential Dx Considerations may include: Viral syndrome, other infectious process such as pneumonia or UTI, dehydration, hypovolemia, electrolyte imbalance, renal failure, arrhythmia, MS, among others X-Ray, Labs, Meds, VS Vital Signs Date Time Temp Pulse Resp B/P (MAP) Pulse Ox O2 Delivery O2 Flow Rate FiO2 02/21/24 16:24 103 02/21/24 13:39 98.5 105 16 109/72 (84) 98 Lab Test 02/21/24 15:33 02/21/24 14:25 02/21/24 14:01 Range/Units Troponin I High Sensitivity Pending 156 *H </=34 ng/L Urine Color Yellow Yellow Urine Clarity Turbid H Clear Urine pH 6.0 5.0-9.0 Urine Specific [place] 1.015 1.001-1.035 Urine Protein 1+ H Negative Urine Ketones Trace Negative Urine Blood 2+ H Negative /uL Urine Nitrite Negative Negative Urine Bilirubin Negative Negative Urine Urobilinogen 2 H Negative mg/dL Urine Leukocyte Esterase 3+ Negative /uL Urine RBC 15 0 - 4 /hpf Urine WBC 170 0 - 5 /hpf Urine Squamous Epithelial Cells Few <5 /hpf Urine Bacteria Many H None Seen /hpf Urine Mucus Few None Seen Urine Glucose Normal Normal mg/dL White Blood Count 14.8 H 4.4-10.8 10^3/uL Red Blood Count 4.33 4.0-5.20 10^6/uL Hemoglobin 13.7 12.2-16.2 g/dL Hematocrit 39.4 36.0-46.0 % Mean Corpuscular Volume 91.1 80.0-100.0 fL Mean Corpuscular Hemoglobin 31.7 28.0-32.0 pg Mean Corpuscular Hemoglobin Concent 34.8 32.0-36.0 g/dL Red Cell Distribution Width 14.1 11.8-14.3 % Platelet Count 335 140-450 10^3/uL Mean Platelet Volume 7.8 6.9-10.8 fL Neutrophils (%) (Auto) 81.9 H 37.0-80.0 % Lymphocytes (%) (Auto) 9.9 L 10.0-50.0 % Monocytes (%) (Auto) 7.7 0.0-12.0 % Eosinophils (%) (Auto) 0.3 0.0-7.0 % Basophils (%) (Auto) 0.2 0.0-2.0 % Neutrophils # (Auto) 12.1 H 1.6-8.6 10 ^3/uL Lymphocytes # (Auto) 1.5 0.4-5.4 10 ^3/uL Monocytes # (Auto) 1.1 0-1.3 10 ^3/uL Eosinophils # (Auto) 0 0-0.8 10 ^3/uL Basophils # (Auto) 0 0-0.2 10 ^3/uL Nucleated Red Blood Cells 0.0 % Sodium Level 133 L 136-145 mmol/L Potassium Level 4.3 3.5-5.1 mmol/L Chloride Level 98 98-107 mmol/L Carbon Dioxide Level 27 20-31 mmol/L Anion Gap 8 5-15 Blood Urea Nitrogen 29 H 9-23 mg/dL Creatinine 1.14 H 0.550-1.02 mg/dL Glomerular Filtration Rate Calc 48 >90 mL/min BUN/Creatinine Ratio 25.4 H 10.0-20.0 Serum Glucose 107 H 74-106 mg/dL Lactic Acid Level 1.9 0.4-2.0 mmol/L Calcium Level 10.3 8.7-10.4 mg/dL B-Type Natriuretic Peptide 157.94 0-100 pg/mL PROCEDURE(s): CXR1 - CHEST XRAY 1 VIEW REASON: cough ORDER NUMBER(s): [id number], ACCESSION NUMBER(s): [id number] CHEST RADIOGRAPH Indication: cough Technique: Single frontal view of the chest was obtained COMPARISON: XY CHEST XRAY 1 VIEW on DOS: 08/13/22, XY CHEST PORTABLE on DOS: 05/19/22 FINDINGS: Lines and Tubes: None Lungs: Clear Pleura: No effusion. No pneumothorax. Cardiomediastinal contours: Unremarkable Bones: Unremarkable IMPRESSION: 1. No acute disease. X-Ray, Labs, Meds, VS Comment 83-year-old female with a history of hyperlipidemia, UTIs, kidney stones and osteopenia complaining of generalized weakness, malaise, nausea and vomiting Vitals remarkable for heart rate 105 Exam unremarkable, except that the patient appears ill Rhythm strip independently interpreted by me: Sinus tach, rate 105, no ectopy. Chest x-ray unremarkable CBC remarkable for WBC 14.8, differential shows a left shift Basic metabolic panel remarkable for sodium 133, BUN 29, creatinine 1.4 Lactate normal BNP 157.94 Troponin 156 Patient treated with the following in the ED: 1 L 0.9 normal saline IV bolus, Zofran 4 mg IV, aspirin 325 mg p.o. , Rocephin 1 g IV On re-evaluation, patient is resting comfortably with stable vitals. Plan is to admit the patient for Cardiology evaluation and IV antibiotics Time of 1ST Reevaluation: 14:50 Reevaluation 1ST: Unchanged Patient Education/Counseling: Diagnosis, Treatment, Prognosis Family Education/Counseling: No Family Present Additional Information HI Data VOL/Complexity Ordered tests: LAB, PHA, XY, EKG reviewed results: TROP, TROP, TROP, COVID, CBC, BNP, BMP, LA, UA Interpreted results: XY, EKG Discuss tx/ results: patient, medical personnel Departure 1 Departure Time of Disposition: 15:42 Impression: Primary Impression: UTI (urinary tract infection) Qualified Codes: N39.0 - Urinary tract infection, site not specified Additional Impression: Elevated troponin Disposition: ADMITTED INPATIENT Admit to: Tele Condition: Guarded Critical Care Note Critical Care Time?: No Stability Stability form required: No Heart Score Heart Score: Heart Score Response (Comments) Value History N/A 0 EKG N/A 0 Age N/A 0 Risk Factors N/A 0 Troponin N/A 0 Total 0 I personally scribed for LANDEN OSULLIVAN MD ([email or web address]) on 02/21/24 at 14:39. Electronically submitted by Alysia Greenwood ([email or web address]). I personally scribed for LANDEN OSULLIVAN MD ([email or web address]) on 02/21/24 at 14:47. Electronically submitted by Alysia Greenwood ([email or web address]). I personally scribed for LANDEN OSULLIVAN MD ([email or web address]) on 02/21/24 at 15:36. Electronically submitted by Alysia Greenwood ([email or web address]). LANDEN OSULLIVAN MD Feb 21, 2024 14:39
[2024-02-21 15:04] LABS: Urine Bacteria MANY /hpf (None Seen); Urine Blood 2+ /uL (Negative); Urine Clarity Turbid (Clear); Urine Color Yellow (Yellow); Urine Mucus FEW (None Seen); Urine Protein, UAD 1+ (Negative); Urine Specific Gravity 1.015 (1.001-1.035); Urine Urobilinogen 2 mg/dL (Negative); Urine WBC 170 /hpf (0 - 5)
[2024-02-21] MEDS ORDERED: DEXTROSE (50%) 50ML SYRG IV PRN (17:15)
[2024-02-21] MEDS: SODIUM CHLORIDE 0.9% 1,000 ML IV ONE (17:15)
[2024-02-21] MEDS ORDERED: MAALOX PLUS or MAALOX 30 ML PO PRN (17:15)
[2024-02-21] MEDS ORDERED: MORPHINE SULFATE INJ 2 MG/ml SYRG IV PRN (17:15)
[2024-02-21] MEDS ORDERED: NITROGLYCERIN 0.4 MG SL TAB SL PRN (17:15)
[2024-02-21] MEDS ORDERED: ACETAMINOPHEN 325 MG TAB PO PRN (17:15)
[2024-02-21] MEDS ORDERED: LORazepam 0.5 MG TAB PO PRN (17:15)
[2024-02-21] MEDS ORDERED: traMADol HCL 50 MG TAB PO PRN (17:15)
[2024-02-21] MEDS ORDERED: ONDANSETRON HCL 4 MG/2 ML VIAL IV PRN (17:15)
[2024-02-21] MEDS ORDERED: MORPHINE SULFATE 4 MG/ML SYR/VIAL IV PRN (17:15)
[2024-02-21] MEDS: cefTRIAXone 1GM/50ML D5W 50 ML IV ONE (17:23)
[2024-02-21] MEDS: ASPirin 325 MG TAB PO ONE (17:24)
--- NOTE | 2024-02-21 17:37 | DVHHP2 ---
History of Present Illness Reason for Visit: General weakness History of Present Illness 83-year-old female with a past medical history cancer, hyperlipidemia, kidney stones, recurrent UTIs and history of osteopenia comes to the ED for evaluation of shortness of breath and stated bronchitis for the past few weeks patient states that she takes several medications on outpatient basis and was not improving whatsoever current symptoms include nausea vomiting abdominal pain fevers and chills patient states that she has had generalized weakness and feeling worse over the next few days patient came to the ED for further evaluation and management on the ED evaluation patient described what seemed like flu-like symptoms was also tested positive for UTI at that point in time patient was recommended for inpatient treatment and evaluation and continued management Cardiovascular: CAD, HTN Review of Systems Constitutional: Yes: Weakness; No: Fever, Chills, Sweats, Malaise, Other Eyes: No: Pain, Vision change, Conjunctivae inflammation, Eyelid inflammation, Other, Redness ENT: No: Ear pain, Ear discharge, Nose pain, Nose discharge, Nose congestion, Mouth pain, Mouth swelling, Throat pain, Throat swelling, Other Respiratory: No: Cough, Dry, Shortness of breath, SOB with excertion, Wheezing, Hemoptysis, Pleuritic Pain, Sputum, Wheezing, Other Cardiovascular: Chest Pain, Palpitations; No: Orthopnea, Paroxysmal Noc. D yspnea, Edema, Lt Headedness, Other Gastrointestinal: Nausea, Vomiting, Abdominal Pain; No: Diarrhea, Constipation, Melena, Hematochezia, Other Genitourinary: No Dysuria, No Frequency, No Incontinence, No Hematuria, No Retention, No Other Musculoskeletal: No: other, neck pain, shoulder pain, arm pain, back pain, hand pain, leg pain, foot pain Skin: No: Rash, Lesions, Jaundice, Bruising, Other Neurological: No: Weakness, Numbness, Incoordination, Change in speech, Confusion, Seizures, Other Allergies: Coded Allergies: NO KNOWN ALLERGIES (Unverified , 04/03/15) Medications Current Medications Medications Dose Ordered Sig/David Route Start Time Stop Time Status Last Admin Dose Admin Docusate Sodium 100 mg BIDP PO 02/21/24 22:00 UNV Tramadol HCl 50 mg TIDPRN PRN PO 02/21/24 17:15 UNV Ceftriaxone Sodium 50 ml @ 100 mls/hr DAILY IV 02/22/24 10:00 UNV Diagnostic Test (Pha) 1 strip IQ4HR 02/21/24 20:00 UNV Insulin Human Regular IQ4HR SC 02/21/24 20:00 UNV Dextrose 50 ml UD PRN IV 02/21/24 17:15 UNV Aspirin 81 mg DAILY PO 02/22/24 10:00 UNV Atorvastatin Calcium 40 mg HS PO 02/21/24 22:00 UNV Carvedilol 6.25 mg Q12HR PO 02/21/24 22:00 UNV Morphine Sulfate 2 mg Q30MP PRN IV 02/21/24 17:15 UNV Acetaminophen 650 mg Q6HP PRN PO 02/21/24 17:15 UNV Zolpidem Tartrate 5 mg QHSP PRN PO 02/21/24 17:15 UNV Lorazepam 0.5 mg Q6HP PRN PO 02/21/24 17:15 UNV Docusate Sodium 100 mg DAILY PO 02/22/24 10:00 UNV Ondansetron HCl 4 mg Q4HP PRN IV 02/21/24 17:15 UNV Al Hydrox/Mg Hydrox/Simethicone 30 ml Q6HPRN PRN PO 02/21/24 17:15 UNV Nitroglycerin 0.4 mg Q5MINP PRN SL 02/21/24 17:15 UNV Morphine Sulfate 2 mg Q30M PRN IV 02/21/24 17:15 UNV Exam Vital Signs Vital Signs Date Time Temp Pulse Resp B/P (MAP) Pulse Ox O2 Delivery O2 Flow Rate FiO2 02/21/24 16:24 103 02/21/24 13:39 98.5 16 109/72 (84) 98 General Appearance: Alert, Oriented X3, Cooperative HEENT: Atraumatic, PERRLA Respiratory: Clear to auscultation, Normal air movement Cardiovascular: Normal S1, Normal S2 Abdominal: Normal bowel sounds, Soft, No tenderness Extremities: No clubbing, No cyanosis Skin: No rashes, No breakdown Neuro: Normal gait, Normal speech Psych/Mental Status: Mood NL Labs/Xrays Labs Test 02/21/24 17:01 02/21/24 15:33 02/21/24 14:25 02/21/24 14:01 Range/Units Troponin I High Sensitivity 148 *H </=34 ng/L Urine Color Yellow Yellow Urine Clarity Turbid H Clear Urine pH 6.0 5.0-9.0 Urine Specific [place] 1.015 1.001-1.035 Urine Protein 1+ H Negative Urine Ketones Trace Negative Urine Blood 2+ H Negative /uL Urine Nitrite Negative Negative Urine Bilirubin Negative Negative Urine Urobilinogen 2 H Negative mg/dL Urine Leukocyte Esterase 3+ Negative /uL Urine RBC 15 0 - 4 /hpf Urine WBC 170 0 - 5 /hpf Urine Squamous Epithelial Cells Few <5 /hpf Urine Bacteria Many H None Seen /hpf Urine Mucus Few None Seen Urine Glucose Normal Normal mg/dL White Blood Count 14.8 H 4.4-10.8 10^3/uL Red Blood Count 4.33 4.0-5.20 10^6/uL Hemoglobin 13.7 12.2-16.2 g/dL Hematocrit 39.4 36.0-46.0 % Mean Corpuscular Volume 91.1 80.0-100.0 fL Mean Corpuscular Hemoglobin 31.7 28.0-32.0 pg Mean Corpuscular Hemoglobin Concent 34.8 32.0-36.0 g/dL Red Cell Distribution Width 14.1 11.8-14.3 % Platelet Count 335 140-450 10^3/uL Mean Platelet Volume 7.8 6.9-10.8 fL Neutrophils (%) (Auto) 81.9 H 37.0-80.0 % Lymphocytes (%) (Auto) 9.9 L 10.0-50.0 % Monocytes (%) (Auto) 7.7 0.0-12.0 % Eosinophils (%) (Auto) 0.3 0.0-7.0 % Basophils (%) (Auto) 0.2 0.0-2.0 % Neutrophils # (Auto) 12.1 H 1.6-8.6 10 ^3/uL Lymphocytes # (Auto) 1.5 0.4-5.4 10 ^3/uL Monocytes # (Auto) 1.1 0-1.3 10 ^3/uL Eosinophils # (Auto) 0 0-0.8 10 ^3/uL Basophils # (Auto) 0 0-0.2 10 ^3/uL Nucleated Red Blood Cells 0.0 % Sodium Level 133 L 136-145 mmol/L Potassium Level 4.3 3.5-5.1 mmol/L Chloride Level 98 98-107 mmol/L Carbon Dioxide Level 27 20-31 mmol/L Anion Gap 8 5-15 Blood Urea Nitrogen 29 H 9-23 mg/dL Creatinine 1.14 H 0.550-1.02 mg/dL Glomerular Filtration Rate Calc 48 >90 mL/min BUN/Creatinine Ratio 25.4 H 10.0-20.0 Serum Glucose 107 H 74-106 mg/dL Lactic Acid Level 1.9 0.4-2.0 mmol/L Calcium Level 10.3 8.7-10.4 mg/dL B-Type Natriuretic Peptide 157.94 0-100 pg/mL Assessment/Plan Assessment/Plan Admit to telemetry Elevated troponins noted No stated chest pain rule out ACS Cardiology evaluation Urinary tract infection IV antibiotics Monitor for signs of acute fluid overload BNP greater than 100 Patient with no acute signs of cardio congestion Continue with patient's home medication We will do IV antibiotics Rocephin daily for the urinary tract infection White count elevated P.r.n. medications for complaints including weakness nausea vomiting Plan discussed with: Patient My Orders Orders - ELEN BARRETO MD Procedure Category Date Status Time Docusate Sodium PHA 02/21/24 Logged Capsule (Colace 22:00 Tramadol Hcl (Ultram) PHA 02/21/24 Logged 17:15 Insulin R (Human) PHA 02/21/24 Logged (Insulin R) 20:00 Dextrose 50% Syringe PHA 02/21/24 Logged 17:15 Admit ADMIT 02/21/24 Transmitted 17:11 Code Status CODE 02/21/24 Transmitted 17:11 Cardiac DIET 02/21/24 Transmitted Diet-2gna,Lofat,Lochol Dinner Aspirin Tablet PHA 02/22/24 Logged 10:00 Atorvastatin (Lipitor) PHA 02/21/24 Logged 22:00 Carvedilol Tablet PHA 02/21/24 Logged (Coreg Tablet) 22:00 Morphine Sulfate PHA 02/21/24 Logged Injection 17:15 Acetaminophen Tablet PHA 02/21/24 Logged (Tylenol Tablet) 17:15 Zolpidem Tartrate PHA 02/21/24 Logged (Ambien) 17:15 Lorazepam Tablet PHA 02/21/24 Logged (Ativan Tablet) 17:15 Docusate Sodium PHA 02/22/24 Logged Capsule (Colace 10:00 Complete Blood Count LAB 02/22/24 Verified 04:00 Basic Metabolic Panel LAB 02/22/24 Verified 04:00 Ondansetron Hcl PHA 02/21/24 Logged (Zofran) 17:15 Electrocardigram EKG 02/21/24 Logged 17:11 Alum & Mag PHA 02/21/24 Logged Hydrox-Simethicone 17:15 Cardiac SHIRLEY 02/21/24 In Process Rehabilitation - Outpa Nitroglycerin PHA 02/21/24 Logged Sublingual (Ntrostat 17:15 Morphine Sulfate PHA 02/21/24 Logged Injection 17:15 Stat Ekg For Chest SHIRLEY 02/21/24 In Process Pain 17:11 Notify Md Of Changes SHIRLEY 02/21/24 In Process From Base 17:11 Entry Manager For SHIRLEY 02/21/24 In Process 24 Hours 17:11 Emergency Dysrhythmia [facility] 02/21/24 In Process Protocol 17:11 Rhythm Strips Once [facility] 02/21/24 In Process Every Shift 17:11 Oxygen By Nasal RT 02/21/24 Transmitted Cannula 17:11 Ceftriaxone Ivpb PHA 02/22/24 Verified Rocephin 10:00 Glucose Blood PHA 02/21/24 Verified (Accu-Chek Comfort 20:00 * Cardiology Consult CONS 02/21/24 Verified 17:20 Problem List: (1) NSTEMI (non-ST elevated myocardial infarction) (2) UTI (urinary tract infection) (3) Elevated troponin (4) Urinary tract infection Date of Service: Feb 21, 2024 Billing Provider: ELEN BARRETO MD Common Visit Codes: [id number] INP/OBS CARE (HIGH) ELEN BARRETO MD Feb 21, 2024 17:37
[2024-02-21 17:39] LABS: Rapid Influenza A Negative (Negative); Rapid Influenza B Negative (Negative)
[2024-02-21 17:40] LABS: COVID19 ANTIGEN SOFIA FIA NEGATIVE (NEGATIVE)
[2024-02-21] MEDS: ACCU-CHEK COMFORT CURVE STRIP VI SCH (20:00)
[2024-02-21] MEDS: InsuLIN REG 1unit/0.01ml Soln (100units/ml) SC SCH (20:43)
[2024-02-21] MEDS: CARVEDILOL 3.125 MG TAB PO SCH (22:00)
[2024-02-21] MEDS: DOCUSATE SOD 100 MG CAP PO SCH (23:55)
[2024-02-21] MEDS: ATORVASTATIN 20 MG TAB PO SCH (23:55)
[2024-02-22 01:00] VITALS: BP 130/67; PULSE 108; RESP 18; TEMP 99.5; O2SAT 96
[2024-02-22] MEDS ORDERED: ATOR10TA52 PO (01:07)
[2024-02-22 05:00] VITALS: BP 116/65; PULSE 90; RESP 18; TEMP 100.5; O2SAT 94
[2024-02-22 08:00] VITALS: PULSE 101; RESP 18
[2024-02-22 08:02] LABS: Basophils # (auto) 0 10 ^3/uL (0-0.2); Basophils % (auto) 0.1 % (0.0-2.0); Eosinophils # (auto) 0 10 ^3/uL (0-0.8); Eosinophils % (auto) 0.2 % (0.0-7.0); Hematocrit 32.2 % (36.0-46.0); Hemoglobin 11.1 g/dL (12.2-16.2); Lymphocytes # (auto) 1.4 10 ^3/uL (0.4-5.4); Lymphocytes % (auto) 12.7 % (10.0-50.0); Mean Corpuscular Hemoglobin 31.6 pg (28.0-32.0); Mean Corpuscular Hgb Conc. 34.5 g/dL (32.0-36.0); Mean Corpuscular Volume 91.6 fL (80.0-100.0); Monocytes # (auto) 1.1 10 ^3/uL (0-1.3); Monocytes % (auto) 10.3 % (0.0-12.0); Neutrophils # (auto) 8.3 10 ^3/uL (1.6-8.6); Neutrophils % (auto) 76.7 % (37.0-80.0); Platelet Count (auto) 278 10^3/uL (140-450); Red Blood Cells 3.52 10^6/uL (4.0-5.20); Red Cell Distribution Width 14.2 % (11.8-14.3); White Blood Cell 10.9 10^3/uL (4.4-10.8)
[2024-02-22 08:08] LABS: Chloride 104 mmol/L (98-107); Potassium 3.6 mmol/L (3.5-5.1)
[2024-02-22 08:09] LABS: Anion Gap 7 (5-15); Calcium 9.3 mg/dL (8.7-10.4); Carbon Dioxide 23 mmol/L (20-31)
[2024-02-22 08:14] LABS: BUN/Creatinine Ratio 24.7 (10.0-20.0); Blood Urea Nitrogen 19 mg/dL (9-23); Glucose 106 mg/dL (74-106)
[2024-02-22 08:15] LABS: Sodium 134 mmol/L (136-145)
[2024-02-22 09:00] VITALS: BP_SYST 94; PULSE 100; RESP 16; TEMP 98.5; O2SAT 94
[2024-02-22] MEDS: ASPirin 81 mg TAB PO SCH (09:41)
[2024-02-22] MEDS: cefTRIAXone 1GM/50ML D5W 50 ML IV SCH (09:42)
[2024-02-22] MEDS ORDERED: DOCUSATE SOD 100 MG CAP PO SCH (10:00)
[2024-02-22] MEDS: ACCU-CHEK COMFORT CURVE STRIP VI SCH (11:30)
--- NOTE | 2024-02-22 15:30 | DVHINCON2 ---
Date Seen: Feb 22, 2024 Referring Physician Radha Reason for Consultation Elevated Troponins History of Present Illness 83-year-old female with PMH for breast CA in remission, recurrent UTIs, HLD, and kidney stones presents to the hospital with shortness of breath and generalized weakness. Patient states she has been feeling sick for the last week with no appetite, and per daughter she has been mainly stayed in bed with no energy. Patient states she has been dealing with bronchitis for the past few weeks and has been taking several medication with no improvement. Denies any chest pain, palpitations, diaphoresis. Upon evaluation in the ER patient noted to have lupis vated troponins trending 156, 148, 149. Positive for UTI. CXR negative for any acute disease. Past Medical History Breast cancer HLD Kidney stones Recurrent UTIs Past Surgical History Mastectomy Lithotripsy Family History: Alcoholism G8 FATHER FH: breast cancer AUNT NIECE FH: cancer G8 FATHER FH: total abdominal hysterectomy and bilateral salpingo-oophorectomy G8 MOTHER Social History Denies alcohol, tobacco, or illicit drug use. Allergies: Coded Allergies: NO KNOWN ALLERGIES (Unverified , 04/03/15) Home Meds Reported Medications Atorvastatin Calcium (ATORVASTATIN CALCIUM) 10 Mg Tab, 1 TAB PO DAILY 02/22/24 Current Medications Current Medications Medications (Trade) Dose Ordered Sig/David Route PRN Reason Start Time Stop Time Status Last Admin Docusate Sodium (Colace Capsule) 100 mg BIDP PO 02/21/24 22:00 02/22/24 09:41 Tramadol HCl (Ultram) 50 mg TIDPRN PRN PO PAIN SCALE 1 THRU 6 02/21/24 17:15 Ceftriaxone Sodium 50 ml @ 100 mls/hr DAILY IV 02/22/24 10:00 02/22/24 09:42 Diagnostic Test (Pha) (Accu-Chek Comfort Curve T) 1 strip IQ4HR 02/21/24 20:00 02/22/24 09:58 DC 02/22/24 08:15 Insulin Human Regular (InsuLIN R) IQ4HR SC 02/21/24 20:00 02/22/24 08:17 Dextrose 50 ml UD PRN IV Blood Sugar LESS THAN 60 02/21/24 17:15 Aspirin 81 mg DAILY PO 02/22/24 10:00 02/22/24 09:41 Atorvastatin Calcium (Lipitor) 40 mg HS PO 02/21/24 22:00 02/21/24 23:55 Carvedilol (Coreg Tablet) 6.25 mg Q12HR PO 02/21/24 22:00 Morphine Sulfate 2 mg Q30MP PRN IV FOR CHEST PAIN 02/21/24 17:15 UNV Acetaminophen (Tylenol Tablet) 650 mg Q6HP PRN PO MILD PAIN (1-3 PAIN SCALE) 02/21/24 17:15 Zolpidem Tartrate (Ambien) 5 mg QHSP PRN PO FOR INSOMNIA 02/21/24 17:15 Lorazepam (Ativan Tablet) 0.5 mg Q6HP PRN PO ANXIETY 02/21/24 17:15 Docusate Sodium (Colace Capsule) 100 mg DAILY PO 02/22/24 10:00 02/21/24 19:34 DC Ondansetron HCl (Zofran) 4 mg Q4HP PRN IV NAUSEA / VOMITING 02/21/24 17:15 Al Hydrox/Mg Hydrox/Simethicone (Maalox Plus) 30 ml Q6HPRN PRN PO PAIN SCALE 1 THRU 6 02/21/24 17:15 Nitroglycerin (Ntrostat Sublingual) 0.4 mg Q5MINP PRN SL FOR CHEST PAIN 02/21/24 17:15 Morphine Sulfate 2 mg Q30M PRN IV FOR CHEST PAIN 02/21/24 17:15 Diagnostic Test (Pha) (Accu-Chek Comfort Curve T) 1 strip ACHS 02/22/24 11:30 Review of Systems Constitutional: No: Fever, Chills, Sweats, Weakness, Malaise, Other Eyes: No: Pain, Vision change, Conjunctivae inflammation, Eyelid inflammation, Other, Redness ENT: No: Ear pain, Ear discharge, Nose pain, Nose discharge, Nose congestion, Mouth pain, Mouth swelling, Throat pain, Throat swelling, Other Respiratory: No: Cough, Dry, Shortness of breath, SOB with exertion, Wheezing, Hemoptysis, Pleuritic Pain, Sputum, Wheezing, Other Cardiovascular: ; No: Chest Pain Palpitations, Orthopnea, Paroxysmal Noc. Dyspnea, Edema, Lt Headedness, Other Gastrointestinal: No: Nausea, Vomiting, Abdominal Pain, Diarrhea, Constipation, Melena, Hematochezia, Other Genitourinary: No Dysuria, No Frequency, No Incontinence, No Hematuria, No Retention, No Other Musculoskeletal: neck pain; No: other, shoulder pain, arm pain, back pain, hand pain, leg pain, foot pain Skin: No: Rash, Lesions, Jaundice, Bruising, Other Neurological: Other (Dizziness, headache.); No: Weakness, Numbness, Incoordination, Change in speech, Confusion, Seizures Vital Signs Vital Signs Date Time Temp Pulse Resp B/P (MAP) Pulse Ox O2 Delivery O2 Flow Rate FiO2 02/22/24 10:00 104/84 02/22/24 09:00 98.5 100 16 94 98.5 02/22/24 08:00 Room Air* 0 21 Physical Exam General appearance: Patient is well-developed, well-nourished, in no acute distress. HEENT: Exam shows: Normocephalic, atraumatic, PERRLA, EOMI Neck: Supple, no bruits Chest: Equal chest excursion bilaterally. Breath sounds normal-no rales or wheezes. Heart: Rhythm: Regular rate; no murmur or gallop Abdomen: Exam shows: Soft, nontender, nondistended Musculoskeletal: No clubbing, no cyanosis, no lower extremity edema Dermatology: Skin warm, moist. Neurological: Exam shows: Alert and oriented x4, normal speech Available prior records, labs, EKG, rhythm strips reviewed and interpreted Labs/Diagnostic Data Labs Test 02/22/24 08:09 02/22/24 07:24 02/21/24 18:03 02/21/24 17:01 Range/Units POC Glucose 146 H 70-106 mg/dl White Blood Count 10.9 #H 4.4-10.8 10^3/uL Red Blood Count 3.52 L 4.0-5.20 10^6/uL Hemoglobin 11.1 #L 12.2-16.2 g/dL Hematocrit 32.2 #L 36.0-46.0 % Mean Corpuscular Volume 91.6 80.0-100.0 fL Mean Corpuscular Hemoglobin 31.6 28.0-32.0 pg Mean Corpuscular Hemoglobin Concent 34.5 32.0-36.0 g/dL Red Cell Distribution Width 14.2 11.8-14.3 % Platelet Count 278 140-450 10^3/uL Mean Platelet Volume 7.6 6.9-10.8 fL Neutrophils (%) (Auto) 76.7 37.0-80.0 % Lymphocytes (%) (Auto) 12.7 10.0-50.0 % Monocytes (%) (Auto) 10.3 0.0-12.0 % Eosinophils (%) (Auto) 0.2 0.0-7.0 % Basophils (%) (Auto) 0.1 0.0-2.0 % Neutrophils # (Auto) 8.3 1.6-8.6 10 ^3/uL Lymphocytes # (Auto) 1.4 0.4-5.4 10 ^3/uL Monocytes # (Auto) 1.1 0-1.3 10 ^3/uL Eosinophils # (Auto) 0 0-0.8 10 ^3/uL Basophils # (Auto) 0 0-0.2 10 ^3/uL Nucleated Red Blood Cells 0.0 % Sodium Level 134 L 136-145 mmol/L Potassium Level 3.6 3.5-5.1 mmol/L Chloride Level 104 98-107 mmol/L Carbon Dioxide Level 23 20-31 mmol/L Anion Gap 7 5-15 Blood Urea Nitrogen 19 # 9-23 mg/dL Creatinine 0.77 # 0.550-1.02 mg/dL Glomerular Filtration Rate Calc 77 >90 mL/min BUN/Creatinine Ratio 24.7 H 10.0-20.0 Serum Glucose 106 74-106 mg/dL Calcium Level 9.3 8.7-10.4 mg/dL Troponin I High Sensitivity 149 *H </=34 ng/L Influenza Type A Antigen Negative Negative Influenza Type B Antigen Negative Negative SARS-CoV-2 Antigen (Rapid) Negative NEGATIVE Test 02/21/24 14:25 02/21/24 14:01 Range/Units Urine Color Yellow Yellow Urine Clarity Turbid H Clear Urine pH 6.0 5.0-9.0 Urine Specific [place] 1.015 1.001-1.035 Urine Protein 1+ H Negative Urine Ketones Trace Negative Urine Blood 2+ H Negative /uL Urine Nitrite Negative Negative Urine Bilirubin Negative Negative Urine Urobilinogen 2 H Negative mg/dL Urine Leukocyte Esterase 3+ Negative /uL Urine RBC 15 0 - 4 /hpf Urine WBC 170 0 - 5 /hpf Urine Squamous Epithelial Cells Few <5 /hpf Urine Bacteria Many H None Seen /hpf Urine Mucus Few None Seen Urine Glucose Normal Normal mg/dL Lactic Acid Level 1.9 0.4-2.0 mmol/L B-Type Natriuretic Peptide 157.94 0-100 pg/mL Assessment * Elevated troponin - denies chest pain. EKG negative for acute ischemic changes. Likely type 2 OK in setting of infection. Follow-up echo. Continue on aspirin and statin. * Tachycardia- resolved. likely physiologic in nature due to dehydration nausea and vomiting infection. Follow-up echo. * UTI - management per primary team. * Elevated BNP - CXR negative. Breathing stable on room air. Patient does not seem overloaded, possible dehydration. Follow-up echo. Case Discussed with Dr Alegria. Elevated troponin. No cardiac symptoms of chest pain. EKG negative for acute ischemic changes. Follow-up echo. Patient will need ischemic workup with stress test, we will plan for tomorrow a.m.. NPO after midnight. Critical care, time spent: 48 minutes This medical document was created using an electronic medical record system with voice recognition software and computerized dictation system. Although this document has been carefully reviewed, there might still be some phonetic and typographical errors. Occasional wrong-word or ``sound-alike substitutions may have occurred due to the inherent limitations of voice recognition software. These areas are purely typographical due to imperfections of the software programs and do not reflect any compromise in the patient's medical care. Please read the chart carefully and recognize, using context, where these substitutions have occurred. Plan discussed with: Patient, Daughter Date of Service: Feb 22, 2024 Billing Provider: WOODROW MATSON MD Cardiology Common Codes: [id number] INP/OBS CARE (High), [id number] CARE 30-74 MIN ISIDRO SIDDIQUI AGACNP Feb 22, 2024 15:30
[2024-02-22 20:00] VITALS: PULSE 96; RESP 18
[2024-02-22 21:00] VITALS: BP 96/55; PULSE 100; RESP 17; TEMP 98.3; O2SAT 92
[2024-02-22] MEDS: InsuLIN REG 1unit/0.01ml Soln (100units/ml) SC SCH (21:33)
--- NOTE | 2024-02-22 21:34 | DVHPN2 ---
Subjective no chest pain Changes from previous H/P or p: No Changes Eyes: No Pain, No Vision change, No Conjunctivae inflammation, No Eyelid inflammation, No Other, No Redness ENT: No Ear pain, No Ear discharge, No Nose pain, No Nose discharge, No Nose congestion, No Mouth pain, No Mouth swelling, No Throat pain, No Throat swelling, No Other Cardiovascular: Chest Pain, Palpitations; No Orthopnea, No Paroxysmal Noc. Dyspnea, No Edema, No Lt Headedness, No Other Respiratory: No Cough, No Dry, No Shortness of breath, No SOB with excertion, No Wheezing, No Hemoptysis, No Pleuritic Pain, No Sputum, No Other Gastrointestinal: Nausea, Vomiting, Abdominal Pain; No Diarrhea, No Constipation, No Melena, No Hematochezia, No Other Genitourinary: No Dysuria, No Frequency, No Incontinence, No Hematuria, No Retention, No Other Musculoskeletal: No other, No neck pain, No shoulder pain, No arm pain, No back pain, No hand pain, No leg pain, No foot pain Skin: No Rash, No Lesions, No Jaundice, No Bruising, No Other Objective Vitals Vital Signs Date Time Temp Pulse Resp B/P (MAP) Pulse Ox O2 Delivery O2 Flow Rate FiO2 02/22/24 10:00 104/84 02/22/24 09:00 98.5 100 16 94 98.5 02/22/24 08:00 Room Air* 0 21 Intake/Output Intake and Output 02/22/24 05:00 Intake Total 1210 ml Balance 1210 ml Intake Oral 210 ml IV Total 1000 ml # Voids 1 General Appearance: Alert, Oriented X3 Lungs: Clear to auscultation Cardiovascular: Regular rate Rectal: Deferred Extremities: No clubbing Medications Current Medications Medications Dose Ordered Sig/David Route Start Time Stop Time Status Last Admin Dose Admin Docusate Sodium 100 mg BIDP PO 02/21/24 22:00 02/22/24 21:18 100 MG Tramadol HCl 50 mg TIDPRN PRN PO 02/21/24 17:15 Ceftriaxone Sodium 50 ml @ 100 mls/hr DAILY IV 02/22/24 10:00 02/22/24 09:42 100 MLS/HR Dextrose 50 ml UD PRN IV 02/21/24 17:15 Aspirin 81 mg DAILY PO 12/8/24 10:00 02/22/24 09:41 81 MG Atorvastatin Calcium 40 mg HS PO 02/21/24 22:00 02/22/24 21:18 40 MG Carvedilol 6.25 mg Q12HR PO 02/21/24 22:00 Morphine Sulfate 2 mg Q30MP PRN IV 02/21/24 17:15 UNV Acetaminophen 650 mg Q6HP PRN PO 02/21/24 17:15 Zolpidem Tartrate 5 mg QHSP PRN PO 02/21/24 17:15 Lorazepam 0.5 mg Q6HP PRN PO 02/21/24 17:15 Ondansetron HCl 4 mg Q4HP PRN IV 02/21/24 17:15 Al Hydrox/Mg Hydrox/Simethicone 30 ml Q6HPRN PRN PO 02/21/24 17:15 Nitroglycerin 0.4 mg Q5MINP PRN SL 02/21/24 17:15 Morphine Sulfate 2 mg Q30M PRN IV 02/21/24 17:15 Diagnostic Test (Pha) 1 strip ACHS 02/22/24 11:30 Insulin Human Regular ACHS SC 02/22/24 22:00 Laboratory Results Laboratory Tests 02/22/24 07:24 Chemistry Test 02/22/24 07:24 Calcium Level 9.3 mg/dL (8.7-10.4) Urinalysis Test 02/21/24 14:25 Urine Color Yellow (Yellow) Urine Clarity Turbid (Clear) H Urine pH 6.0 (5.0-9.0) Urine Specific [place] 1.015 (1.001-1.035) Urine Protein 1+ (Negative) H Urine Ketones Trace (Negative) Urine Blood 2+ /uL (Negative) H Urine Nitrite Negative (Negative) Urine Bilirubin Negative (Negative) Urine Urobilinogen 2 mg/dL (Negative) H Urine Leukocyte Esterase 3+ /uL (Negative) Urine RBC 15 /hpf (0 - 4) Urine WBC 170 /hpf (0 - 5) Urine Squamous Epithelial Cells Few /hpf (<5) Urine Bacteria Many /hpf (None Seen) H Urine Mucus Few (None Seen) Urine Glucose Normal mg/dL (Normal) Assessment/Plan Assessment/Plan (1) NSTEMI (non-ST elevated myocardial infarction) (2) UTI (urinary tract infection) (3) Elevated troponin (4) Urinary tract infection pending cardiology consult, aspirin and statin, echo, stress test tomorrow continue IV abx and pending urince cx Plan discussed with: Patient Date of Service: Feb 22, 2024 Billing Provider: KARMA PORTILLO MD Common Visit Codes: [id number] INP/OBS CARE(HIGH) KARMA PORTILLO MD Feb 22, 2024 21:34
[2024-02-23] VITALS (8 sets, daily range): BP systolic 87–115; BP diastolic 46–64; PULSE 57–90; RESP 16–18; TEMP 98–99.9; O2SAT 93–100
--- NOTE | 2024-02-23 06:46 | ECG ---
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
[2024-02-23] MEDS: ADENOSINE 54 MG in GIVE UN-DILUTED 0 ML IV STA (08:46)
--- NOTE | 2024-02-23 09:32 | DVHSR ---
APPROVED REPORT EXAM: Two-dimensional and M-mode echocardiogram with Doppler and color Doppler. Blood Pressure: 104/84 mmHg INDICATION Elevated troponin RISK FACTORS Height: 5'2", Weight: 130 DIMENSIONS LVDd3.3 (3.8-5.7cm)LA (2D)3.7 (1.9-4.0cm)Aortic Root3.2 (2.0-3.7cm) LVDs2.1 (2.5-4.0cm)LA (MM) (1.9-4.0cm)Aortic Cusp Exc1.5 (1.5-2.0cm) EF (%) 60.0 (55-70%)Rt. Atrium2.9 (1.9-4.0cm)Asc. Aorta cm IVSd0.9 (0.7-1.1cm)RV (D) (1.8-2.4cm) PWd1.0 (0.7-1.1cm) Mitral Valve MitralMitral Stenosis E wave1.34m/sMV Mean GR.5mmHg A wave1.39m/sMV Peak GR.9mmHg E/A ratio1.02D MVAcm2 DECEL [id number] 1/2 [id number] IVRTmsDop MVA3.16cm2 Aortic Valve Aortic ValveAortic Stenosis V11.29m/Satish Mean GR.5mmHg V21.53m/Satish Peak GR.9mmHg LVOT Diameter1.5 (1.8-2.4cm)Doppler AVA1.49cm2 Pulmonic Valve V20.86m/s Tricuspid Valve TR Velocity2.79m/s [id number] Other Information Technically limited study due to body habitus. Conclusion Normal left ventricular size and dimension. Normal left ventricular systolic function estimated ejec tion fraction 55%. There is a grade 1 diastolic dysfunction. Normal right ventricular size and dimension. Normal right ventricular systolic function. Slightly i ncreased right ventricular systolic pressure at 34 mm of mercury. Normal biatrial size and dimension. Normal aortic valve structure and function. Normal mitral valve structure function. Normal tricuspid structure function. The pulmonary valve is grossly normal. No pericardial effusion.
--- NOTE | 2024-02-23 13:15 | DVHSR ---
APPROVED REPORT Exam: Nuclear Stress Test Indication: Troponin elevation Stress Tech: Mary Miller Ht: 5 ft 2 in Wt: 130 lbs BSA: 1.59 m2 BMI: 23.77 Medical History Medical History: Hyperlipidemia, Breast Ca remission, Complicated UTIs, Renal stones Allergies: No known drug allergies Stress Test Details Stress Test: Pharmacological stress testing performed using 54 mg of Adenosine Reason for pharmacologic stress test: Elevated Troponins. HR Resting HR: 88 bpmMax Heart Rate (APMHR): 139.515992 bpm Max HR Achieved: 115 bpmTarget HR (85% APMHR): 118.539151 bpm % of APMHR: 82.73 Recovery HR: 98 bpm BP Resting BP: 104/58 mmHg Recovery BP: 102/53 mmHg ECG Resting ECG: SEE BASELINE EKG Clinical Reason for Termination: Completed protocol Nurse Comments Pre Test: Received patient from [facility] [employer] [facility]. Patient is A&O x4 and on RA. 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 RT & LT PIVS both flush well. Reviewed POC and patient verbalizes understanding an d consents to test. Post Test: Adenosine stress test performed per protocol. renal technician administered the Cardi olite. Patient tolerated well and vitals returned to baseline. Transferred to [facility] via [facility] with tech in stable condition. Stress ECG Conclusion Resting images shows near homogeneous uptake of radioactive tracer throughout the myocardium without evidence of myocardial infarction. Stress images shows near homogeneous uptake of radioactive tracer throughout the myocardium without e vidence of myocardial ischemia. Well-preserved left ventricular systolic function at 73%. Impression: Negative stress test for ischemia, low risk study. NM EXAM: Myocardial Perfusion REST/STRESS Imaging Protocol: Rest Tc-99m/Stress Tc-99m 1 day Resting Data Rest SPECT myocardial perfusion imaging was performed in supine position 60 minutes following the int ravenous injection of 13 mCi of Tc-99m Sestamibi. Time of rest injection: 729 Time of rest imagin Administration Route: IV Administration Site: Left Hand Pharmacologic Stress Pharmacologic stress test was performed by injecting Adenosine mg IV push followed by the intravenou s injection of 31.1 mCi of Tc-99m Sestamibi. Time of stress injection: 842 Time of stress imagin Administration Route: IV Administration Site: Left Hand Gated Stress SPECT was performed 60 minutes after stress injection. The images were gated to evaluate regional wall motion and calculate left ventricular ejection fracti on. Stress only was performed in the Supine position. Nuclear Conclusion ECG Findings: negative for ischemia Clinical Findings: negative for ischemia Nuclear Findings: negative for ischemia Exercise Capacity: not assessed Left Ventricular Function: normal Risk Study: low Resting images shows near homogeneous uptake of radioactive tracer throughout the myocardium without evidence of myocardial infarction. Stress images shows near homogeneous uptake of radioactive tracer throughout the myocardium without e vidence of myocardial ischemia. Well-preserved left ventricular systolic function at 73%. Impression: Negative stress test for ischemia, low risk study.
--- NOTE | 2024-02-23 14:50 | ECG ---
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
--- NOTE | 2024-02-23 15:40 | DVHPN2 ---
Subjective no chest pain Changes from previous H/P or p: No Changes Eyes: No Pain, No Vision change, No Conjunctivae inflammation, No Eyelid inflammation, No Other, No Redness ENT: No Ear pain, No Ear discharge, No Nose pain, No Nose discharge, No Nose congestion, No Mouth pain, No Mouth swelling, No Throat pain, No Throat swelling, No Other Cardiovascular: Chest Pain, Palpitations; No Orthopnea, No Paroxysmal Noc. Dyspnea, No Edema, No Lt Headedness, No Other Respiratory: No Cough, No Dry, No Shortness of breath, No SOB with excertion, No Wheezing, No Hemoptysis, No Pleuritic Pain, No Sputum, No Other Gastrointestinal: Nausea, Vomiting, Abdominal Pain; No Diarrhea, No Constipation, No Melena, No Hematochezia, No Other Genitourinary: No Dysuria, No Frequency, No Incontinence, No Hematuria, No Retention, No Other Musculoskeletal: No other, No neck pain, No shoulder pain, No arm pain, No back pain, No hand pain, No leg pain, No foot pain Skin: No Rash, No Lesions, No Jaundice, No Bruising, No Other Objective Vitals Vital Signs Date Time Temp Pulse Resp B/P (MAP) Pulse Ox O2 Delivery O2 Flow Rate FiO2 02/23/24 13:00 98.3 74 17 115/64 (81) 95 98.3 02/23/24 08:15 Room Air* 0 21 Intake/Output Intake and Output 02/23/24 05:00 Intake Total 2160 ml Output Total 0 ml Balance 2160 ml Intake Oral 2110 ml IV Total 50 ml Output Urine Total 0 ml # Voids 6 General Appearance: Alert, Oriented X3 Lungs: Clear to auscultation Cardiovascular: Regular rate Rectal: Deferred Extremities: No clubbing Medications Current Medications Medications Dose Ordered Sig/David Route Start Time Stop Time Status Last Admin Dose Admin Docusate Sodium 100 mg BIDP PO 02/21/24 22:00 02/23/24 09:57 100 MG Tramadol HCl 50 mg TIDPRN PRN PO 02/21/24 17:15 Ceftriaxone Sodium 50 ml @ 100 mls/hr DAILY IV 02/22/24 10:00 02/23/24 09:57 100 MLS/HR Dextrose 50 ml UD PRN IV 02/21/24 17:15 Aspirin 81 mg DAILY PO 02/22/24 10:00 12/9/24 09:57 81 MG Atorvastatin Calcium 40 mg HS PO 02/21/24 22:00 02/22/24 21:18 40 MG Carvedilol 6.25 mg Q12HR PO 02/21/24 22:00 Morphine Sulfate 2 mg Q30MP PRN IV 02/21/24 17:15 UNV Acetaminophen 650 mg Q6HP PRN PO 02/21/24 17:15 Zolpidem Tartrate 5 mg QHSP PRN PO 02/21/24 17:15 Lorazepam 0.5 mg Q6HP PRN PO 02/21/24 17:15 Ondansetron HCl 4 mg Q4HP PRN IV 02/21/24 17:15 Al Hydrox/Mg Hydrox/Simethicone 30 ml Q6HPRN PRN PO 02/21/24 17:15 Nitroglycerin 0.4 mg Q5MINP PRN SL 02/21/24 17:15 Morphine Sulfate 2 mg Q30M PRN IV 02/21/24 17:15 Laboratory Results Laboratory Tests 02/22/24 07:24 Urinalysis Test 02/21/24 14:25 Urine Color Yellow (Yellow) Urine Clarity Turbid (Clear) H Urine pH 6.0 (5.0-9.0) Urine Specific [place] 1.015 (1.001-1.035) Urine Protein 1+ (Negative) H Urine Ketones Trace (Negative) Urine Blood 2+ /uL (Negative) H Urine Nitrite Negative (Negative) Urine Bilirubin Negative (Negative) Urine Urobilinogen 2 mg/dL (Negative) H Urine Leukocyte Esterase 3+ /uL (Negative) Urine RBC 15 /hpf (0 - 4) Urine WBC 170 /hpf (0 - 5) Urine Squamous Epithelial Cells Few /hpf (<5) Urine Bacteria Many /hpf (None Seen) H Urine Mucus Few (None Seen) Urine Glucose Normal mg/dL (Normal) Assessment/Plan Assessment/Plan (1) NSTEMI (non-ST elevated myocardial infarction) (2) UTI (urinary tract infection) (3) Elevated troponin (4) Urinary tract infection pending cardiology consult, aspirin and statin, echo, stress test today continue IV abx and pending urince cx Plan discussed with: Patient My Orders Orders - KARMA PORTILLO MD Procedure Category Date Status Time Cardiac DIET 02/23/24 Transmitted Diet-2gna,Lofat,Lochol Lunch Date of Service: Feb 23, 2024 Billing Provider: KARMA PORTILLO MD Common Visit Codes: [id number] INP/OBS CARE(HIGH) KARMA PORTILLO MD Feb 23, 2024 15:40
--- NOTE | 2024-02-23 17:17 | DVHPN2 ---
Consult Progress Note Date Seen: Feb 23, 2024 Subjective Review of Systems: CVS:Normal, RESPIRATORY:Normal, NEURO:Normal Objective vital signs Vital Sign Date Time Temp Pulse Resp B/P (MAP) Pulse Ox O2 Delivery O2 Flow Rate FiO2 02/23/24 16:47 98.3 57 17 95/55 (68) 98 98.3 02/23/24 08:15 Room Air* 0 21 Total Intake and Output 02/22/24 02/22/24 02/23/24 15:00 23:00 07:00 Intake Total 50 ml 1000 ml 1110 ml Output Total 0 ml Balance 50 ml 1000 ml 1110 ml medications Current Medications Medications Dose Ordered Sig/David Route Start Time Stop Time Status Last Admin Dose Admin Docusate Sodium 100 mg BIDP PO 02/21/24 22:00 02/23/24 09:57 100 MG Tramadol HCl 50 mg TIDPRN PRN PO 02/21/24 17:15 Ceftriaxone Sodium 50 ml @ 100 mls/hr DAILY IV 02/22/24 10:00 02/23/24 09:57 100 MLS/HR Dextrose 50 ml UD PRN IV 02/21/24 17:15 Aspirin 81 mg DAILY PO 02/22/24 10:00 02/23/24 09:57 81 MG Atorvastatin Calcium 40 mg HS PO 02/21/24 22:00 02/22/24 21:18 40 MG Morphine Sulfate 2 mg Q30MP PRN IV 02/21/24 17:15 UNV Acetaminophen 650 mg Q6HP PRN PO 02/21/24 17:15 Zolpidem Tartrate 5 mg QHSP PRN PO 02/21/24 17:15 Lorazepam 0.5 mg Q6HP PRN PO 02/21/24 17:15 Ondansetron HCl 4 mg Q4HP PRN IV 02/21/24 17:15 Al Hydrox/Mg Hydrox/Simethicone 30 ml Q6HPRN PRN PO 02/21/24 17:15 Nitroglycerin 0.4 mg Q5MINP PRN SL 02/21/24 17:15 Morphine Sulfate 2 mg Q30M PRN IV 02/21/24 17:15 Examination: LUNGS:Abnormal (Congested, cough present), CVS:Normal, NEURO:Normal laboratory and microbiology Laboratory Tests 02/22/24 07:24 Test 02/22/24 07:24 Range/Units Serum Glucose 106 74-106 mg/dL Problem List/Assessment/Plan Problem List/Assessment/Plan * Elevated troponin - Denies chest pain. EKG negative for acute ischemic changes. Likely type 2 FL in setting of infection * Echocardiogram revealed EF 55% with grade I diastolic dysfunction * Negative stress test for ischemia, low-risk study * Sinus tachycardia 2/2 sepsis/dehydration- resolved * UTI - management per primary team. There is no further cardiac work-up indicated at this time. Kindly call if in need to re-consult. We will sign off at this time. This medical document was created using an electronic medical record system with voice recognition software and computerized dictation system. Although this document has been carefully reviewed, there might still be some phonetic and typographical errors. Occasional wrong-word or ``sound-alike substitutions may have occurred due to the inherent limitations of voice recognition software. These areas are purely typographical due to imperfections of the software programs and do not reflect any compromise in the patient's medical care. Please read the chart carefully and recognize, using context, where these substitutions have occurred. Plan discussed with: Patient, Daughter, Other Date of Service: Feb 23, 2024 Billing Provider: KENDRICK DOWNS MD Cardiology Common Codes: [id number] INP/OBS CARE(Mod) [facility] Feb 23, 2024 17:17
[2024-02-24 01:00] VITALS: BP 106/63; PULSE 84; RESP 17; TEMP 98.4; O2SAT 93
[2024-02-24] MEDS: ZOLPIDEM TARTRATE 5 MG TAB PO PRN (01:18)
[2024-02-24 05:00] VITALS: BP 104/47; PULSE 64; RESP 17; TEMP 98.3; O2SAT 96
[2024-02-24 08:00] VITALS: PULSE 73
[2024-02-24 09:00] VITALS: BP 101/54; PULSE 80; RESP 16; TEMP 98; O2SAT 94
[2024-02-24] MEDS ORDERED: ATOR20TA50 PO (10:46)
[2024-02-24] MEDS ORDERED: ASPI-325 PO (10:46)
[2024-02-24 11:07] VITALS: BP 108/64; PULSE 85
== END 2024-02-24 11:30 | disposition home or self-care (01) | DRG 871 ==
LOC: ER 12:31 → OVERFLOW 17:11 → WEST WING 23:45 → TELE-WESTW 02-22 04:53
PROVIDERS: ADMIT Hospitalist; ATTEND Hospitalist
DX: A41.9 Sepsis, unspecified organism (principal); I21.A1 Myocardial infarction type 2; N39.0 Urinary tract infection, site not specified; E78.5 Hyperlipidemia, unspecified; M85.88 Other specified disorders of bone density and structure, other site; I25.10 Atherosclerotic heart disease of native coronary artery without angina pectoris; I10 Essential (primary) hypertension; E86.0 Dehydration; K59.00 Constipation, unspecified; Z90.10 Acquired absence of unspecified breast and nipple; Z90.710 Acquired absence of both cervix and uterus; Z80.3 Family history of malignant neoplasm of breast; Z85.3 Personal history of malignant neoplasm of breast; Z87.442 Personal history of urinary calculi
CPT/HCPCS: 36415; 71045; 78452; 80048; 81001; 82962; 83605; 83880; 84484; 85025; 87426; 87804; 93005; 93017; 93306; 96365; 96375; G0378; J0153; J1815

== ENCOUNTER → 2024-03-12 | Outpatient (CLI) | payer BC ==
[~2024-03-12] MED LIST changes: +ASPI-325 PO; +ATOR20TA50 PO; -DOCU-94 PO; -LEVO750T8 PO; -TRAM50TA2 PO
== END | disposition home or self-care (01) ==
LOC: LAB 11:51
PROVIDERS: ATTEND Internal Medicine
DX: N20.0 Calculus of kidney (principal); Z87.440 Personal history of urinary (tract) infections
CPT/HCPCS: 87086; 87088; 87186

== ENCOUNTER 2024-04-02 13:21 | Emergency (ER) | payer BC ==
[~2024-04-02] VITALS: Ht 157.5 cm; Wt 58.6 kg
[2024-04-02 13:34] VITALS: BP 120/75; PULSE 112; RESP 18; O2SAT 97
[2024-04-02 15:49] LABS: COVID19 ANTIGEN SOFIA FIA NEGATIVE (NEGATIVE)
== END 2024-04-02 16:11 | disposition left against medical advice (07) ==
LOC: ER 13:21
DX: J40 Bronchitis, not specified as acute or chronic (principal); Z53.21 Procedure and treatment not carried out due to patient leaving prior to being seen by health care provider; Z20.822 Contact with and (suspected) exposure to COVID-19
CPT/HCPCS: 36415; 87426

== ENCOUNTER → 2024-04-16 | Outpatient (CLI) | payer BC | END | disposition home or self-care (01) | LOC: LAB 13:52 | PROVIDERS: ATTEND Family Medicine | DX: R22.2 Localized swelling, mass and lump, trunk (principal) ==

== ENCOUNTER → 2024-07-05 | Outpatient (CLI) | payer BC ==
[2024-07-05 10:45] LABS: Urine Bacteria None Seen /hpf (None Seen)
[2024-07-05 11:04] LABS: Basophils # (auto) 0 10 ^3/uL (0-0.2); Basophils % (auto) 0.8 % (0.0-2.0); Eosinophils # (auto) 0.1 10 ^3/uL (0-0.8); Eosinophils % (auto) 2.6 % (0.0-7.0); Hematocrit 39.7 % (36.0-46.0); Hemoglobin 13.5 g/dL (12.2-16.2); Lymphocytes # (auto) 1.5 10 ^3/uL (0.4-5.4); Lymphocytes % (auto) 28.8 % (10.0-50.0); Mean Corpuscular Hemoglobin 31.5 pg (28.0-32.0); Mean Corpuscular Volume 92.5 fL (80.0-100.0); Monocytes # (auto) 0.4 10 ^3/uL (0-1.3); Monocytes % (auto) 7.3 % (0.0-12.0); Neutrophils # (auto) 3.1 10 ^3/uL (1.6-8.6); Neutrophils % (auto) 60.5 % (37.0-80.0); Platelet Count (auto) 253 10^3/uL (140-450); Red Blood Cells 4.29 10^6/uL (4.0-5.20); Red Cell Distribution Width 14.4 % (11.8-14.3); White Blood Cell 5.1 10^3/uL (4.4-10.8)
[2024-07-05 11:33] LABS: % Iron Saturation 24.1 % (15-50); Thyroid Stimulating Hormone 1.54 uIU/mL (0.55-4.78)
[2024-07-05 11:36] LABS: Alanine Aminotransferase 17 U/L (7-40); Albumin 4.4 g/dL (3.2-4.8); Alkaline Phosphatase 81 U/L (46-116); Anion Gap 6 (5-15); Aspartate Aminotransferase 22 U/L (13-40); BUN/Creatinine Ratio 20.3 (10.0-20.0); Blood Urea Nitrogen 16 mg/dL (9-23); Calcium 10.2 mg/dL (8.7-10.4); Carbon Dioxide 28 mmol/L (20-31); Chloride 104 mmol/L (98-107); Cholesterol 172 mg/dL (< 200); Glucose 90 mg/dL (74-106); LDL Cholesterol 88 mg/dL (< 100); Sodium 138 mmol/L (136-145); Total Protein 7.3 g/dL (5.7-8.2); Triglycerides 81 mg/dL (< 150); Urine Blood Negative /uL (Negative); Urine Clarity Clear (Clear); Urine Color Light-Yellow (Yellow); Urine Protein, UAD Negative (Negative); Urine Specific Gravity 1.016 (1.001-1.035); Urine Squamous Epithelial Cell FEW /hpf (<5); Urine Urobilinogen Normal (Negative); Urine WBC 2 /HPF (0-5); Urine pH 7.5 (5.0-9.0)
[2024-07-05 11:37] LABS: Bilirubin, Total 0.7 mg/dL (0.2-1.0)
[2024-07-05 11:39] LABS: Free T4 (Free Thyroxine) 1.24 ng/dL (0.89-1.76)
[2024-07-05 11:47] LABS: HDL Cholesterol 67 mg/dL (40-59)
[2024-07-05 13:13] LABS: Erythrocyte Sedimentation Rate 17 mm/hr (0-20)
== END | disposition home or self-care (01) ==
LOC: LAB 10:18
PROVIDERS: ATTEND Internal Medicine
DX: E78.00 Pure hypercholesterolemia, unspecified (principal); M81.0 Age-related osteoporosis without current pathological fracture; D64.9 Anemia, unspecified
CPT/HCPCS: 36415; 80053; 80061; 81001; 82306; 82607; 83540; 83550; 83615; 84439; 84443; 85025; 85652

== ENCOUNTER 2024-08-15 10:49 | Emergency (ER) | payer BC ==
[~2024-08-15] VITALS: Ht 157.5 cm; Wt 59.0 kg
[2024-08-15 11:15] VITALS: BP 139/58; PULSE 83; RESP 18; TEMP 98.1; O2SAT 96
[2024-08-15] MEDS ORDERED: DOCO10CR2 EX (11:33)
--- NOTE | 2024-08-15 11:33 | ED.PDOC ---
History of Present Illness HPI Comments 83-year-old female that comes in after a fall last week. Last Friday she was in [place] at a [employer] tournament she reached back while she was on the escalator and lost balance. She fell on both her arms and knees. There was no loss of consciousness she did not hit her head. Since then she has had no headache no nausea no vomiting no other symptoms. The wounds on her arms all healed up with topical antibiotic ointment. This morning she woke up and noticed some a blood vessel had burst in her right eye she also noticed that she had a cold sore on her lip and was concerned.. Chief Complaint: Fall Injury Time Seen by MD: 11:24 Primary Care Provider: SADAF [place] Notes: Nurses Notes, Medications, Allergies Allergies: Coded Allergies: NO KNOWN ALLERGIES (Unverified , 04/03/15) Home Meds Active Scripts Atorvastatin Calcium (ATORVASTATIN CALCIUM) 20 Mg Tab, 40 MG PO HS, #120 TAB Prov:KARMA PORTILLO MD 02/24/24 Aspirin (Aspirin Low Dose) 81 Mg Tab, 81 MG PO DAILY, #120 TAB Prov:KARMA PORTILLO MD 02/24/24 Information Source: Patient Mode of Arrival: Ambulatory Past Medical History PAST MEDICAL HISTORY: Cancer, High Lipids, Kidney Stones, UTI'S Surgical History: Hysterectomy Surgical History (Other): Mastectomy NET MENDER History: No Pertinent NET MENDER History Family History Family History: Reviewed,noncontributory to illness Social History Smoker: Non-Smoker Alcohol: Denies ETOH Use Drugs: Denies Drug Use Lives In: Home EENTM: reports: eye redness, others (cold sore) All Other Systems: Reviewed and Negative Physical Exam General Appearance: No Apparent Distress, Normal HEENT: PERRL/EOMI, Pharynx Normal, TMs Normal, Other (Right subconjunctival hemorrhage) Neck: Full Range of Motion, Non-Tender, Normal, Normal Inspection Respiratory: Lungs Clear, None, Normal Breath Sounds Cardiovascular: Regular Rate/Rhythm Breast Exam: Deferred Gastrointestinal: Non Tender, Normal Bowel Sounds Genitalia: Deferred Pelvic: Deferred Rectal: Deferred Extremities: Normal capillary refill, Normal inspection, Normal range of motion Neurologic: Alert, Normal Affect, Normal Mood Cerebellar Function: Normal Reflexes: NOT DONE Skin: Bruises, Dry, Warm Lymphatic: No Adenopathy Was a procedure done? Was a procedure done?: No Differential Dx Considerations may include: His head injury, concussion X-Ray, Labs, Meds, VS Vital Signs Date Time Temp Pulse Resp B/P (MAP) Pulse Ox O2 Delivery O2 Flow Rate FiO2 08/15/24 11:00 98.1 83 18 139/58 (85) 96 98.1 X-Ray, Labs, Meds, VS Comment Patient seen and examined by me. Patient does have a subconjunctival hemorrhage on the right eye which is just coincidental. She has no pain or incidents of head trauma. Her injuries from her fall were all in her extremities which have now healed. There is no indication to do a CT of her head she has no head injury symptoms. She does have a small cold sore on her lower lip. I will treat her for that. Time of 1ST Reevaluation: 11:30 Reevaluation 1ST: Improved Patient Education/Counseling: Diagnosis, Treatment, Prognosis, Need For Follow Up Family Education/Counseling: No Family Present Departure 1 Departure Time of Disposition: 11:31 Impression: Primary Impression: Subconjunctival hemorrhage of right eye Additional Impression: History of fall Disposition: 01 HOME / SELF CARE / HOMELESS Condition: Good Additional Instructions: The bruising in your eye we will go away in the next 7-10 days there is no treatment for it it is just a vessel that has popped Try not to touch lesion on your mouth to prevent spread Okay to take Tylenol or Motrin if needed for pain e-Prescriptions Docosanol (Abreva) 10 % Cre 10 % EX TID for 7 Days, #1 CRE Prov: SANTA FERNANDES 08/15/24 Discharged With: Self Critical Care Note Critical Care Time?: No Stability Stability form required: No SANTA FERNANDES Aug 15, 2024 11:33
== END 2024-08-15 11:34 | disposition home or self-care (01) ==
LOC: ER 10:49
DX: H11.31 Conjunctival hemorrhage, right eye (principal); E78.5 Hyperlipidemia, unspecified; Z90.710 Acquired absence of both cervix and uterus; W19.XXXA Unspecified fall, initial encounter; Y93.89 Activity, other specified; Y92.89 Other specified places as the place of occurrence of the external cause; Y99.8 Other external cause status

== ENCOUNTER → 2024-08-27 | Outpatient (CLI) | payer BC ==
[~2024-08-27] MED LIST changes: +DOCO10CR2 EX
== END | disposition home or self-care (01) ==
LOC: LAB 08:54
PROVIDERS: ATTEND Family Medicine
DX: D48.5 Neoplasm of uncertain behavior of skin (principal)